=== PATIENT | female | born 1980 | race African-American/Black ===

== ENCOUNTER 2016-07-07 09:47 | Emergency (ER) | payer OTHER ==
[~2016-07-07] VITALS: Ht 167.6 cm; Wt 157.6 kg
[~2016-07-07 09:47] MED LIST: ALBU8.5H2 INHALATION; BECL8.7A6 IH; BENZ-12 PO; GLIM4TAB2 PO; INSU100V7 SUBQ; IPRA3AMP IH; LISI10TA PO; METF1000 PO; OMEP20CA11 PO; OXYC-407 PO; OXYC1TAB24 PO; PRE20 PO
--- NOTE | 2016-07-07 09:49 | ED.REPORT ---
[id number] Illness Date of Service Jul 07, 2016 ED Provider: Dr. Stanislaw Roque Patient is a 35 year old female with a hx of pneumonia, asthma, COPD, HTN, and DM who reports to the ED via EMS complaining of SOB onset this morning. She began experiencing flu-like symptoms yesterday including cough, nausea, vomiting and diarrhea. Pt denies fever. She presents to the ED in moderate- severe respiratory distress with an O2 saturation of 95%. She was tachycardic and hypertensive in the field. She has used a home nebulizer and inhaler with no relief. Pt also reports diaphoresis and chest pain which she thinks is due to coughing. She has no history of MARVIN. She had a nebulizer via EMS which was not helpful. Nursing Notes Stated Complaint: FLU LIKE SYMPTOMS Nursing Notes Reviewed: Yes Allergies: Coded Allergies: methylprednisolone (Verified Allergy, Severe, Nausea,Vomiting, 07/17/16) hydrocodone bitartrate (Verified Allergy, Unknown, 07/17/16) TAKES PERCOCET AT HOME ibuprofen (Verified Allergy, Unknown, 07/17/16) ketorolac tromethamine (Verified Allergy, Unknown, 07/17/16) propoxyphene napsylate (Verified Allergy, Unknown, 07/17/16) Scheduled Beclomethasone Dipropionate (Qvar) 8.7 Gm Aer.w.adap 2 PUFFS IH BID Glimepiride (Glimepiride) 4 Mg Tablet 4 MG PO BID Lisinopril (Lisinopril) 10 Mg Tablet 10 MG PO QAM Metformin (Glucophage) 1,000 Mg Tablet 1,000 MG PO BID Omeprazole (Omeprazole) 20 Mg Capsule.dr 20 MG PO DAILY Prednisone (Deltasone) 20 Mg Tablet 40 MG PO DAILY Take 2 tablets (40mg) by mouth once daily for 2 days Scheduled PRN Albuterol HFA (Proair HFA) 8.5 Gm Hfa.aer.ad 2-4 PUFFS INHALATION Q6H PRN PRN For Shortness of Breath Benzonatate (Tessalon Perle) 100 Mg Capsule 200 MG PO TID PRN PRN For Cough Guaifenesin/Codeine Phosphate (Cheratussin AC Syrup) 118 Ml Liquid 10 ML PO Q4H PRN PRN For Cough Insulin Glargine (Lantus U100 Insulin Vial) 100 Unit/Ml Vial 45 UNIT SUBQ QPM- INSULIN PRN PRN HYPERGLYCEMIA FOR BLOOD GLUCOSE >130 Ipratropium/Albuterol Sulfate (Iprat-Albut 0.5-3(2.5) mg/3 mL Inhalant Soln) 3 Ml Ampul.neb 3 ML IH Q6 PRN PRN For Shortness of Breath Ondansetron ODT (Zofran ODT) 4 Mg Tablet 4 MG PO Q4H PRN PRN For Nausea Oxycodone HCl/Acetaminophen 5-325 (Endocet 5-325) 1 Each Tablet 1 TABLET PO TID PRN PRN For Pain oxyCODONE-Acetaminophen 5-325 mg (oxyCODONE-Acetaminophen 5-325 mg) 1 Each Tablet 1-2 TAB PO Q6H PRN PRN For Pain General Time Seen by Provider: 09:55 Chief Complaint Other (shortness of breath) Hx Obtained From: Patient, EMS Arrived By: Ambulance Onset Occurred: Just prior to arrival Symptom Duration: Since onset Location: : Chest Quality: Pleuritic Severity: Current: Mild Severity: Maximum: Mild Similar Sx Previous: No Past Medical History Past Medical History Notes: 04/29/2015 for acute asthma exacerbation Patient has had 5 ED visits for abdominal pain in the past 6 Records indicate [address] scans over the years, all negative Past Medical History Diverticulitis Chronic back pain Chronic narcotic use Morbid obesity Recurrent bronchitis Pancreatitis Polycystic ovarian syndrome Arthritis Reports: Asthma, COPD, Diabetes mellitus, Hypertension Reports: Obesity Past Surgical History Reports: Cholecystectomy Family History Mother from a blood clot in her leg Smoking History Current Every Day Smoker Social History Alcohol Use: "Social" Drug Use: THC Other Social History: Local resident Ambulatory Status Independent Review of Systems Constitutional: Reports: Chills, Denies: Fever Respiratory: Reports: Non-productive cough, Pleuritic pain, Shortness of breath Cardiovascular: Reports: Chest pain GI: Reports: Diarrhea, Nausea, Vomiting, Denies: Abdominal pain Complete sys rev & neg: except as marked. Skin: Reports Diaphoresis Physical Exam Initial Vital Signs Initial VS: Reviewed, Vital signs abnormal Head / Eyes: Atraumatic, Normocephalic, PERRL ENT: Mucous membranes moist, Conjunctiva normal, No scleral icterus Abdomen / GI: Soft Extremities: Vascular intact, Neuro intact, No swelling General/Constitutional: Awake, Alert Distress / Hydration: Positive: Distress moderate Behavior: Positive: Anxious, Tearful Appearance / Presentation: Positive: Obese, morbidly Neck: Atraumatic, Supple, No meningismus, Full range of motion, No swelling, Non-tender Respiratory / Chest: Atraumatic, No retractions, No chest wall deformity Resp Distress / Stridor: Positive: Resp distress moderate Breath sounds diminished bilaterally Wheezing throughout all rizzo Cardiovascular: Regular rhythm, Heart sounds NL, No gallop, No murmurs, No rubs Heart Rate / Rhythm: Positive: Tachycardia Skin: Atraumatic, Color NL, No rash, Warm, Intact Color / Condition: Positive: Diaphoresis present Neurologic: Oriented X3, Speech NL, No motor deficits, No sensory deficits Interpretation & Diagnostics Interpretation & Diagnostics: Influenza A & B negative Lab Results Interpretation Test 07/07/16 10:22 07/07/16 11:23 07/07/16 15:06 White Blood Count 8.9th/mm3 (3.8-10.1) Red Blood Count 5.23mil/mm3 (3.90-5.20) Hemoglobin 14.0g/dL (12.0-15.6) Hematocrit 41.7% (35.0-46.0) Mean Corpuscular Volume 79.7fL (81-100) Mean Corpuscular Hemoglobin 26.8pg (27.0-35.0) Mean Corpuscular Hemoglobin Concent 33.6% (32.0-37.0) Red Cell Distribution Width 13.2% (12.3-15.4) Platelet Count sandy/L (150-400) Neutrophils (%) (Auto) 64.2% (40-74) Lymphocytes (%) (Auto) 26.3% (14-46) Monocytes (%) (Auto) 6.9% (4-12) Eosinophils (%) (Auto) 1.5% (0-5) Basophils (%) (Auto) 0.4% (0-3) Sodium Level 135mEq/L (134-144) Potassium Level 4.5mEq/L (3.5-5.2) Chloride Level 99mEq/L (97-108) Carbon Dioxide Level 20mmol/L (18-29) Blood Urea Nitrogen 10mg/dL (6-20) Creatinine 0.79mg/dL (0.57-1.00) Estimat Glomerular Filtration Rate 106mL/min (>59) Glucose Level 267mg/dL (60-99) Calcium Level 8.9mg/dL (8.5-10.1) Total Bilirubin 0.6mg/dL (0.0-1.2) Aspartate Amino Transf (AST/SGOT) 13U/L (0-50) Alanine Aminotransferase (ALT/SGPT) 10U/L (0-32) Alkaline Phosphatase 77U/L (25-150) Troponin T < 0.010ug/L (0.0-0.011) Pro-B-Type Natriuretic Peptide 65.34pg/mL (0-130) Total Protein 7.2g/dL (6.4-8.4) Albumin 3.9g/dL (3.4-5.0) Procalcitonin < 0.05ng/mL (See Comment) D-Dimer < 0.5mg/L (<0.50) Urine Color Yellow (YELLOW) Urine Appearance Hazy (CLEAR,HAZY) Urine pH 6.0 (5.0-8.0) Urine Specific [place] 1.020 (1.003-1.035) Urine Protein Negativemg/dL (NEG,TRACE) Urine Glucose (UA) Negativemg/dL (NEGATIVE) Urine Ketones Negativemg/dL (NEGATIVE) Urine Occult Blood Negative (NEGATIVE) Urine Nitrite Negative (NEGATIVE) Urine Bilirubin Negative (NEGATIVE) Urine Urobilinogen Normalmg/dL (NORMAL) Urine Leukocyte Esterase Negative (NEGATIVE) Urine RBC 0-2/hpf (0-2) Urine WBC 0-5/hpf (0-5) Urine Epithelial Cells Few/hpf (NONE-MOD) Urine Crystals None seen (NONE SEEN) Urine Bacteria Few/hpf (NONE-FEW) Urine Hyaline Casts None/lpf (NONE) Urine Granular Casts None seen (NONE SEEN) Urine Waxy Casts None seen (NONE SEEN) Urine Red Blood Cell Casts None seen (NONE SEEN) Urine White Blood Cell Casts None seen (NONE SEEN) Urine Mucus None seen (None Seen) Urine Trichomonas None seen (NONE SEEN) Urine Yeast None (NONE SEEN) Urinalysis Comment None Urine Culture Reflexed Not indicated Lab Results Interpretation: ph 7.39/38/160/22.5 fio2 of 50% ECG Interpretation ECG Interpretation: no st changes Interpreted by: ED physician Rhythm / Conduction: Tachycardia (127) X-Ray Chest Interpretation Chest Xray Interpretation: IMPRESSION: 1. No acute cardiopulmonary disease. Dictated by: Robert Guadarrama M.D. on 07/07/2016 at 10:22 Approved by: Robert Guadarrama M.D. on 07/07/2016 at 10:22 View: Portable Interpretation / Wet Read by: Interpret - Radiologist Re-Evaluation & [facility] Med Decision/Clinical Course 35-year-old female with a history of COPD who is a regular smoker presents with shortness of breath since this morning and body aches/chills. Her ABG was essentially normal. She was in respiratory distress initially but this improved with several breathing treatments. She was also given Levaquin and prednisone. Patient continued to have chest pain but this was relieved with Dilaudid. Her d-dimer was negative and certainly all of her symptoms are consistent with COPD. She has plenty of albuterol at home to continue treatments and I have advised her to do so every 2 hours as needed. She is not hypoxic. Return if symptoms worsen. Re-Evaluation/Progress #1: Time of Eval: 10:46 Patient Status: Condition improved Re-Evaluation/Progress Note: Pt rechecked. Symptoms slightly improved, better air movement. Respiratory distress improved. Re-Evaluation/Progress #2: Time of Eval: 12:59 Re-Evaluation/Progress Note: Pt rechecked. Pt is moving much more air and diminished wheezing in lungs. Informed pt of plan for treatment. Pt understands and agrees with plan for treatment. F/U instructions and RTER warnings given. All questions addressed. Counseled Regarding: Diagnosis, Lab results, Need for follow-up, When/why to return to ED Patient Discharge & Departure Impression: Primary Impression: COPD exacerbation Additional Impressions: Respiratory distress Chest pain Chest pain type: unspecified Qualified Code: R07.9 - Chest pain, unspecified Nausea Cough Disposition: Home Discharge Condition All VS Reviewed: Yes Condition: Stable Patient Instructions: Chronic Obstructive Pulmonary Disease (ED) Additional Instructions: I recommend you quit smoking. This is the main cause of your symptoms today. There are no signs of pneumonia or influenza on our testing today. Please use prednisone daily and Levaquin daily until your pills are gone. Use Zofran as needed for nausea. Use cough syrup to help you sleep better at night. Return to the ER for any new or worsening symptoms. Follow up with your primary care provider next week. Referrals: Kiran Haney MD (PCP) Scribadrián Attestation Portion of this note were transcribed by Angel Deng and Dany Bryant. I, Dr. Roque, personally performed the history, physical exam, and medical decision-making: I reviewed and confirmed the accuracy for the information in the transcribed note. Signed by: margarita Lynn, 07/07/16 1005 copies to: Kiran Haney MD, Gary R DO Jul 07, 2016 09:49 DANY BRYANT Jul 07, 2016 10:06 ANGEL DENG Jul 07, 2016 10:14
[2016-07-07] MEDS ORDERED: Albuterol 2.5 mg/3 mL Inhalation Solution NEB ONE (09:50)
[2016-07-07] MEDS ORDERED: Albuterol-Ipratropium 3 mL Inhalation Solution NEB ONE ×2 (09:50→13:05)
[2016-07-07 10:02] VITALS: BP 150/96; PULSE 126; RESP 27; O2SAT 100
[2016-07-07] MEDS ORDERED: Magnesium Sulf 2 Gm/50mL Water 2 GM in IV Premix 1 EACH IV ONE (10:10)
[2016-07-07] MEDS ORDERED: Dexamethasone 10 mg/mL Inj IVPUSH ONE (10:10)
[2016-07-07] MEDS ORDERED: levoFLOXacin Inj 750 MG in IV Premix 1 EACH IV ONE (10:10)
--- NOTE | 2016-07-07 10:11 | ABG ---
DateTimeAnalyzed 10:06:00 -_ pH ____7.391 - 7.350 7.450 pCO2 ___38.0__ -mmHg 35.0 45.0 pO2 160 -mmHg 69.0 116 HCO3- ___22.5__ -mmol/L 22.0 26.0 ABE ___-1.6__ -mmol/L -2.0 2.0 tHb ___12.8__ -g/dL O2Hb ___96.8__ -% COHb ____1.6__ -% MetHb ____0.9__ -% sO2 ___99.3__ -% FIO2 ___21.0__ -% Drawn By MT - Date/Time Notified____ 10:11:00 -_ Oxygen Device 1 SIMP MASK - Notified By MT - Notified Whom ___DR. Adelin - B 769 -mmHg tO2 ___17.8__ -Vol% Garret test _Positive -
[2016-07-07 10:17] VITALS: PULSE 120; RESP 26; O2SAT 99
--- NOTE | 2016-07-07 10:24 | DRSVH ---
PROCEDURE: X-RAY CHEST ONE VIEW, PORTABLE ([id number]) INDICATIONS: sob TECHNIQUE: One view of the chest was acquired. COMPARISON: [facility], CR, XR CHEST 2VW, 02/02/2016, 13:14. [facility], CR, XR CHEST 1VW (PORTABLE), 12/07/2015, 16:25. FINDINGS: Surgical changes and devices: None. Lungs and pleura: No pleural effusions or pneumothorax. Lungs are clear. Mediastinum: Mediastinal contours appear normal. Heart size is normal. Bones and chest wall: No suspicious bony lesions. Overlying soft tissues appear unremarkable. IMPRESSION: 1. No acute cardiopulmonary disease. Dictated by: Robert Guadarrama M.D. on 07/07/2016 at 10:22 Approved by: Robert Guadarrama M.D. on 07/07/2016 at 10:22
[2016-07-07 10:30] LABS: BASOPHILS % (AUTO) 0.4 % (0-3); EOSINOPHILS % (AUTO) 1.5 % (0-5); MONOCYTES % (AUTO) 6.9 % (4-12); Mean Corpuscular Hemoglobin 26.8 pg (27.0-35.0); Mean Corpuscular Volume 79.7 fL (81-100); NEUTROPHILS % (AUTO) 64.2 % (40-74)
[2016-07-07] MEDS ORDERED: HYDROmorphone 1 mg/mL Inj IVPUSH ONE ×4 (10:50→15:05)
[2016-07-07 11:55] LABS: TROPONIN T < 0.010 ug/L (0.0-0.011)
[2016-07-07] MEDS ORDERED: 0.9% Sodium Chloride 1,000 ML IV ONE (13:02)
[2016-07-07] MEDS ORDERED: predniSONE 20 mg Tablet PO ONE (13:05)
[2016-07-07 13:19] VITALS: PULSE 112; RESP 20; O2SAT 95
[2016-07-07 14:52] VITALS: BP 133/85; PULSE 120; RESP 24; O2SAT 94
[2016-07-07] MEDS ORDERED: ONDA4TAB9 PO (15:05)
[2016-07-07] MEDS ORDERED: LEVO750T9 PO (15:05)
[2016-07-07] MEDS ORDERED: PRED50TA PO (15:05)
[2016-07-07] MEDS ORDERED: GUAI118L13 PO (15:05)
[2016-07-07 15:25] VITALS: BP 133/85; PULSE 101; RESP 18; O2SAT 96
[2016-07-08 15:30] LABS: APPEARANCE,URINE HAZY (CLEAR,HAZY); COLOR,URINE YELLOW (YELLOW); OCCULT BLOOD,URINE NEGATIVE (NEGATIVE); UROBILINOGEN,URINE NORMAL (NORMAL)
== END 2016-07-07 15:27 | disposition home or self-care (01) ==
LOC: EDBD 09:47 → SED 09:47
DX: J44.1 Chronic obstructive pulmonary disease with (acute) exacerbation (principal); R11.0 Nausea; M79.1 Myalgia; R68.83 Chills (without fever); I10 Essential (primary) hypertension; E11.9 Type 2 diabetes mellitus without complications; E66.01 Morbid (severe) obesity due to excess calories; J45.909 Unspecified asthma, uncomplicated; F17.200 Nicotine dependence, unspecified, uncomplicated; Z87.01 Personal history of pneumonia (recurrent); Z68.43 Body mass index [BMI] 50.0-59.9, adult; Z79.4 Long term (current) use of insulin; Z79.84 Long term (current) use of oral hypoglycemic drugs; Z88.8 Allergy status to other drugs, medicaments and biological substances; Z88.5 Allergy status to narcotic agent; Z88.6 Allergy status to analgesic agent
CPT/HCPCS: 36415; 71010; 80053; 81000; 82308; 83880; 84484; 85025; 85379; 87804; 93005; 94640; 94664; 96361; 96365; 96366; 96375; 96376; 99285; J1100; J1170; J1956; J2060; J7030; J7613; J7620

== ENCOUNTER 2016-07-08 08:56 | Observation (INO) | payer OTHER, MEDICAID ==
[2016-07-08] VITALS (9 sets, daily range): BP systolic 102–140; BP diastolic 42–84; PULSE 78–125; RESP 18–30; O2SAT 92–99
[~2016-07-08] VITALS: Ht 167.6 cm; Wt 153.8 kg
[~2016-07-08 08:56] MED LIST changes: +GUAI118L13 PO; +LEVO750T9 PO; +ONDA4TAB9 PO; +PRED50TA PO
--- NOTE | 2016-07-08 09:03 | ED.REPORT ---
HPI-General Illness Date of Service Jul 08, 2016 ED Provider: Stanislaw Roque DO This patient is a 35 year old female with a history of DM, hypertension, and COPD presenting to the ED complaining of SOB and cough. She was seen in the ED yesterday for an exacerbation of COPD and states that she has been up all night since then due to discomfort from coughing. Pt states that she does breathing treatment at home 4x daily and has not experienced relief from it. She feels burning pain in her throat and chest that radiates to her LUQ abdomen as well as tightness in her abdomen. She denies indigestion. Nursing Notes Stated Complaint: COLD SYMPTOMS Nursing Notes Reviewed: Yes Allergies: Coded Allergies: methylprednisolone (Verified Allergy, Severe, Nausea,Vomiting, 07/17/16) hydrocodone bitartrate (Verified Allergy, Unknown, 07/17/16) TAKES PERCOCET AT HOME ibuprofen (Verified Allergy, Unknown, 07/17/16) ketorolac tromethamine (Verified Allergy, Unknown, 07/17/16) propoxyphene napsylate (Verified Allergy, Unknown, 07/17/16) Scheduled Beclomethasone Dipropionate (Qvar) 8.7 Gm Aer.w.adap 2 PUFFS IH BID Glimepiride (Glimepiride) 4 Mg Tablet 4 MG PO BID Lisinopril (Lisinopril) 10 Mg Tablet 10 MG PO QAM Metformin (Glucophage) 1,000 Mg Tablet 1,000 MG PO BID Omeprazole (Omeprazole) 20 Mg Capsule.dr 20 MG PO DAILY Prednisone (Deltasone) 20 Mg Tablet 40 MG PO DAILY Take 2 tablets (40mg) by mouth once daily for 2 days Scheduled PRN Albuterol HFA (Proair HFA) 8.5 Gm Hfa.aer.ad 2-4 PUFFS INHALATION Q6H PRN PRN For Shortness of Breath Benzonatate (Tessalon Perle) 100 Mg Capsule 200 MG PO TID PRN PRN For Cough Guaifenesin/Codeine Phosphate (Cheratussin AC Syrup) 118 Ml Liquid 10 ML PO Q4H PRN PRN For Cough Insulin Glargine (Lantus U100 Insulin Vial) 100 Unit/Ml Vial 45 UNIT SUBQ QPM- INSULIN PRN PRN HYPERGLYCEMIA FOR BLOOD GLUCOSE >130 Ipratropium/Albuterol Sulfate (Iprat-Albut 0.5-3(2.5) mg/3 mL Inhalant Soln) 3 Ml Ampul.neb 3 ML IH Q6 PRN PRN For Shortness of Breath Ondansetron ODT (Zofran ODT) 4 Mg Tablet 4 MG PO Q4H PRN PRN For Nausea Oxycodone HCl/Acetaminophen 5-325 (Endocet 5-325) 1 Each Tablet 1 TABLET PO TID PRN PRN For Pain oxyCODONE-Acetaminophen 5-325 mg (oxyCODONE-Acetaminophen 5-325 mg) 1 Each Tablet 1-2 TAB PO Q6H PRN PRN For Pain General Time Seen by MD: 09:01 Chief Complaint Breathing problem (SOB) Hx Obtained From: Patient Arrived By: Walk-in Sudden in Onset?: No Onset Occurred: Yesterday Symptom Duration: Since onset Location: : Abdomen: Chest Quality: Burning, Pleuritic Radiation: : Abdomen (Tightness) Severity: Current: Moderate Severity: Maximum: Moderate Associated with: Reports: Abdominal pain, Cough, Difficulty breathing, Pain, Shortness of breath Pertinent Negative: Pt denies other symptoms Recent Healthcare: No recent hospitalization, Recent doctor visit Similar Sx Previous: Yes Past Medical History Past Medical History Notes: 04/29/2015 for acute asthma exacerbation Patient has had 5 ED visits for abdominal pain in the past 6 Records indicate [address] scans over the years, all negative Past Medical History Diverticulitis Chronic back pain Chronic narcotic use Morbid obesity Recurrent bronchitis Pancreatitis Polycystic ovarian syndrome Arthritis Reports: Asthma, COPD, Diabetes mellitus, Hypertension Reports: Obesity Past Surgical History Reports: Cholecystectomy Family History Mother from a blood clot in her leg Smoking History Current Every Day Smoker Social History Alcohol Use: "Social" Drug Use: THC Other Social History: Local resident Ambulatory Status Independent Review of Systems Denies indigestion Full Review of Systems Ears / Nose / Throat: Reports: Throat pain (Burning) Respiratory: Reports: Non-productive cough, Pleuritic pain, Shortness of breath Cardiovascular: Reports: Chest pain (Burning) GI: Reports: Abdominal pain (tightness ) Complete sys rev & neg: except as marked. Physical Exam Vital Signs Initial VS: Reviewed Head / Eyes: Atraumatic, Normocephalic, PERRL ENT: Mucous membranes moist, Conjunctiva normal, No scleral icterus Neck: Supple, Full range of motion Extremities: Vascular intact, Neuro intact, No swelling Skin: Warm, Dry, No cyanosis Neurologic: Alert, Oriented, Nonfocal Psychiatric: Mood/affect normal, Behavior normal, Normal thought content General/Constitutional: Awake, Alert, Cooperative, Not toxic appearing Appearance / Presentation: Positive: Obese, morbidly Respiratory / Chest: Atraumatic, Breath sounds = bilat, No retractions Wheezing / Retractions: Positive: Wheezing mild Tachypneic Good air movement to lungs Lungs sound better than yesterday, per exam Cardiovascular: Regular rhythm, Heart sounds NL, No gallop, No murmurs Heart Rate / Rhythm: Positive: Tachycardia No lower extremity edema Abdomen: Atraumatic, Soft, No guarding, No rebound Tenderness/Guarding/Rebound: Positive: Tender LUQ... (mild) Interpretation & Diagnostics Interpretation & Diagnostics: PROCEDURE: CT ANGIO CHEST PULMONARY EMBOLISM ([id number]) IMPRESSION: 1. No evidence of central pulmonary embolism, with suboptimal opacification of the pulmonary arteries limiting evaluation beyond the segmental pulmonary arteries. 2. Mildly enlarged mediastinal and right hilar lymph nodes are nonspecific and may be reactive. Findings are slightly increased from the prior study. 3. Scattered indistinct clustered ground glass opacities with a basilar predominance are decreased in prominence from the prior study. The findings suggest sequelae of a mild chronic atypical infection. Dictated by: Robert Guadarrama M.D. on 07/08/2016 at 11:33 Lab Results Interpretation Test 07/08/16 10:01 07/08/16 11:00 Troponin T < 0.010ug/L (0.0-0.011) Pro-B-Type Natriuretic Peptide 496.0pg/mL (0-130) Procalcitonin < 0.05ng/mL (See Comment) ECG Interpretation ECG Interpretation: Sinus tachy with rate of [address] changes unchanged compared to yesterday Time: 09:30 Interpreted by: ED physician Re-Eval/Medical Decision Med Decision/Clinical Course 36-year-old female with history of asthma/COPD who is seen by me yesterday in the ER for respiratory distress presents again because she is unable to feel better at home on nebulizers. She presented today tachypneic, tachycardic, and diaphoretic. I ruled out PE with CTA of the chest. Her left upper quadrant pain improved with a GI cocktail leading me to suspect a component of gastritis. She continues to ask for pain medication for her chest pain. She does not look much improved after nebulizers today. She is already on antibiotics and steroids. I think she would benefit from admission for further treatment of her condition. Discussed with patient who agrees. Source of Hx: Old records Time of Eval: 10:42 Patient Status: Condition improved Re-Evaluation/Progress Note: Pt. rechecked. Pt. seems a little more relaxed. LUQ pain has mildy improved with GI cocktail. Patient remains tachypenic and tachycardic. Told pt. that she might be admitted. Pt. understands and agrees with plan. All questions have been addressed at this time. Consultation : Referral / Consult Name: Davon Boo MD Consulted With: Hospitalist Requested Call at: 13:22 Family Manager: Will see patient, Agrees with eval, Agrees with plan, Accepts admit Note: Consulted regarding case. Accepts admit. Counseled Regarding: Diagnosis, Lab results, Need for admission Discharge & Departure Primary Impression: COPD exacerbation Additional Impressions: Respiratory distress Cough Failure of outpatient treatment Shortness of breath Disposition: ADMITTED TO HOSPITAL Discharge Condition All VS Reviewed: Yes Condition: Stable Referrals: Kiran Haney MD (PCP) Scribe Attestation Portions of this note were transcribed by Funmi Deng. I, Dr. Roque personally performed the history, physical exam and medical decision- making; I reviewed and confirmed the accuracy of the information in the transcribed note. Signed by: Kiley 07/08/2016 and 1333. copies to: Kiran Haney MD, Gary R DO Jul 08, 2016 09:03 Narda Richardson [Funmi] Jul 08, 2016 09:21 ANGEL DENG Jul 08, 2016 09:27 (3.5-5.2) Chloride Level 96mEq/L (97-108) Carbon Dioxide Level 22mmol/L (18-29) Blood Urea Nitrogen 14mg/dL (6-20) Creatinine 0.84mg/dL (0.57-1.00) Estimat Glomerular Filtration Rate 99mL/min (>59) Glucose Level 236mg/dL (60-99) Calcium Level 9.1mg/dL (8.5-10.1) Total Bilirubin 0.3mg/dL (0.0-1.2) Aspartate Amino Transf (AST/SGOT) 33U/L (0-50) Alanine Aminotransferase (ALT/SGPT) 21U/L (0-32) Alkaline Phosphatase 75U/L (25-150) Troponin T < 0.010ug/L (0.0-0.011) Pro-B-Type Natriuretic Peptide 496.0pg/mL (0-130) Total Protein 8.1g/dL (6.4-8.4) Albumin 4.0g/dL (3.4-5.0) Procalcitonin < 0.05ng/mL (See Comment) ECG Interpretation ECG Interpretation: Sinus tachy with rate of [address] changes unchanged compared to yesterday Time: 09:30 Interpreted by: ED physician Re-Eval/Medical Decision Source of Hx: Old records Time of Eval: 10:42 Patient Status: Condition improved Re-Evaluation/Progress Note: Pt. rechecked. Pt. seems a little more relaxed. LUQ pain has mildy improved with GI cocktail. Patient remains tachypenic and tachycardic. Told pt. that she might be admitted. Pt. understands and agrees with plan. All questions have been addressed at this time. Consultation : Referral / Consult Name: Davon Boo MD Consulted With: Hospitalist Requested Call at: 13:22 Family Manager: Will see patient, Agrees with eval, Agrees with plan, Accepts admit Note: Consulted regarding case. Accepts admit. Counseled Regarding: Diagnosis, Lab results, Need for admission Discharge & Departure Primary Impression: COPD exacerbation Additional Impressions: Respiratory distress Cough Failure of outpatient treatment Shortness of breath Disposition: ADMITTED TO HOSPITAL Discharge Condition All VS Reviewed: Yes Condition: Stable Referrals: Kiran Haney MD (PCP) Scribe Attestation Portions of this note were transcribed by Funmi Richardson and Angel Deng. I, Dr. Roque personally performed the history, physical exam and medical decision- making; I reviewed and confirmed the accuracy of the information in the transcribed note. Signed by: Funmi Deng, Kiley, 07/08/2016 and 1333. copies to: Kiran Haney MD, Gary R DO Jul 08, 2016 09:03 Narda Richardson [Funmi] Jul 08, 2016 09:21 ANGEL DENG Jul 08, 2016 09:27
[2016-07-08] MEDS ORDERED: 0.9% Sodium Chloride 1,000 ML IV ONE (09:04)
[2016-07-08] MEDS ORDERED: Albuterol 2.5 mg/3 mL Inhalation Solution NEB ONE (09:05)
[2016-07-08] MEDS ORDERED: Albuterol-Ipratropium 3 mL Inhalation Solution NEB ONE (09:05)
[2016-07-08] MEDS ORDERED: Magnesium Sulf 2 Gm/50mL Water 2 GM in IV Premix 1 EACH IV ONE (09:15)
[2016-07-08] MEDS ORDERED: HYDROmorphone 1 mg/mL Inj IVPUSH ONE ×2 (09:20→11:00)
[2016-07-08] MEDS ORDERED: LORazepam 1 mg Tablet PO ONE (09:20)
[2016-07-08] MEDS ORDERED: Alum-Mag Hydrox-Simeth 30 mL Suspension PO ONE (09:20)
[2016-07-08 10:25] LABS: BASOPHILS % (AUTO) 0 % (0-3); EOSINOPHILS % (AUTO) 0 % (0-5); MONOCYTES % (AUTO) 17.5 % (4-12); Mean Corpuscular Hemoglobin 26.3 pg (27.0-35.0); Mean Corpuscular Volume 81.1 fL (81-100); NEUTROPHILS % (AUTO) 55.2 % (40-74); Platelet Count 203 bil/L (150-400)
[2016-07-08 10:42] LABS: TROPONIN T < 0.010 ug/L (0.0-0.011)
--- NOTE | 2016-07-08 11:38 | DRSVH ---
PROCEDURE: CT ANGIO CHEST PULMONARY EMBOLISM ([id number]) INDICATIONS: chest pain, tachycardia, sob TECHNIQUE: After the administration of intravenous contrast, 2 mm thick sections acquired from the pulmonary api margy to the posterior costophrenic angles. 3-dimensional maximum intensity projection (MIP) coronal a nd sagittal reformats were then acquired through the thorax. For radiation dose reduction, the follo wing was used: automated exposure control, adjustment of mA and/or kV according to patient size. COMPARISON: [facility], CT, CHEST ANGIO-PE, 06/12/2013, 7:15. FINDINGS: Image quality: There is suboptimal opacification of the pulmonary arteries. Pulmonary arteries: Pulmonary arteries are normal in size, and demonstrate no intraluminal filling d efects to suggest central pulmonary embolism. There is suboptimal opacification of the pulmonary art eries limiting evaluation of subsegmental branches. Lungs and pleura: There are a few indistinct clustered ground glass opacities scattered bilaterally with a basilar predominance. No pleural effusions or pneumothorax. Central and peripheral airways ar e patent. Mediastinum: Heart size is normal, without pericardial effusion. There are mildly enlarged right hi lar lymph nodes measuring up to 1 cm in short axis. A few mildly enlarged mediastinal lymph nodes ar e also demonstrated including a precarinal node measuring approximately 1 cm in short axis and a subc arinal node measuring 1.1 cm in short axis. Thoracic aorta is normal in caliber and enhancement. Es ophagus is normal in caliber, without hiatal hernia. Bones and chest wall: No suspicious bony lesions. Ribs and thoracic spine appear intact throughout. Thyroid gland is partially visualized. No axillary or supraclavicular adenopathy by size criteria, with a few scattered mildly prominent axillary lymph nodes which are likely reactive. Abdomen: Visualized upper abdominal solid organs appear normal in the early arterial phase of enhanc ement. IMPRESSION: 1. No evidence of central pulmonary embolism, with suboptimal opacification of the pulmonary arterie s limiting evaluation beyond the segmental pulmonary arteries. 2. Mildly enlarged mediastinal and right hilar lymph nodes are nonspecific and may be reactive. Fin dings are slightly increased from the prior study. 3. Scattered indistinct clustered ground glass opacities with a basilar predominance are decreased i n prominence from the prior study. The findings suggest sequelae of a mild chronic atypical infectio n. Dictated by: Robert Guadarrama M.D. on 07/08/2016 at 11:33 Approved by: Robert Guadarrama M.D. on 07/08/2016 at 11:33
[2016-07-08] MEDS ORDERED: Lidocaine PF 2% 5 mL Inhalation Solution INHALATION ONE (12:20)
[2016-07-08] MEDS ORDERED: Ondansetron 2 mg/mL 2 mL Inj IVPUSH PRN ×2 (13:35→14:10)
[2016-07-08] MEDS ORDERED: Alum-Mag Hydrox-Simeth 30 mL Suspension PO PRN ×2 (13:35→14:10)
[2016-07-08] MEDS ORDERED: Polyethylene Glycol (PEG) 17 Gm Powder PO PRN (14:10)
--- NOTE | 2016-07-08 14:11 | NUR ---
Admission [place] [facility] chest pain 03/04, on-going for several days dus to cough. VSS, able to transfer self from stretcher to bed, and then to chair. 2L O2 via NC, IV SL. A/Ox3. [place] to call light, visiting hours, Call light with in reach, will continue to monitor.
[2016-07-08] MEDS ORDERED: Glucose 40% Oral Gel 15 Gm Tube PO PRN (14:15)
[2016-07-08] MEDS ORDERED: oxyCODONE-Acetamin 5-325 mg Tablet PO ONE (15:20)
--- NOTE | 2016-07-08 15:30 | NUR ---
Pain Pt reports upper abd/lower chest pain 10/10 on pain scale due to coughing, MD notified. New order received for 1 time order of Percocet. Pain meds given as ordered. Call light with in reach, will continue to monitor.
[2016-07-08] MEDS: predniSONE 20 mg Tablet PO SCH (15:38)
--- NOTE | 2016-07-08 15:43 | PCM.HPMED ---
Subjective Date of Service Jul 08, 2016 Primary Provider: Admitting Physician: Davon Boo MD Primary Care Physician: Kiran Haney MD Attending Physician: Davon Boo MD Admit Status: From the Emergency Department Chief Complaint: cough, dyspnea, and pain History of Present Illness: Almaz is a 35yo female with ongoing tobacco use, asthma, and chronic prescription opiate use for low back pain who presented to the emergency department with 3-4 days of worsening cough with yellow-green sputum and dyspnea for which she reports using her albuterol inhaler every 4hours for the past 3 days. She was seen in the ER on 07/07/16 complaining of cough, nausea, vomiting, and diarrhea in addition to diaphoresis. She was given prescriptions for levofloxacin, ondansetron, and codeine cough syrup. No improvement with the codeine cough syrup. Her boyfriend has had a cough and runny nose, though he is not nearly as ill per patient report and he is improving. She denies any nasal congestion or rhinorrhea. She denies any fever, but admits to chills and some night sweats. She reports nausea and chest wall tenderness "from all that coughing." Today, she denies having had any diarrhea recently. She reports compliance with twice daily Qvar use. She requests Dilaudid stating that she did not have anything for pain. When asked about her home opiate medication, she states that she "misplaced" her pill bottle of oxycodone-acetaminophen 5/325mg tablets #114 that she picked up from her pharmacy on 06/29/16 and has not had any today. She has received Dilaudid 1mg IV x 2 while in the emergency department. She was also given Lorazepam 1mg PO in the ER at 09:59 today. Review of Systems: A comprehensive review of systems was conducted with the patient and found to be negative except as above in the History of Present Illness. Allergies Coded Allergies: methylprednisolone (Verified Allergy, Severe, Nausea,Vomiting, 02/14/16) hydrocodone bitartrate (Verified Allergy, Unknown, 02/14/16) TAKES PERCOCET AT HOME ibuprofen (Verified Allergy, Unknown, 02/14/16) ketorolac tromethamine (Verified Allergy, Unknown, 02/14/16) propoxyphene napsylate (Verified Allergy, Unknown, 02/14/16) Home Medications Lisinopril 10mg daily Metformin 1000mg BID Glimepiride 4mg daily Insulin, she is unable to recall the type or the number of units she takes. Qvar inhaler BID Albuterol inhaler q4-6h PRN wheezing or dyspnea Oxycodone-acetaminophen 5/325mg tablet 1-2 q6h PRN pain, has reportedly not taken any for the past day or so since she does not know where her bottle of the medication is located. PMH Per chart review and discussion with the patient: Asthma with a h/o yearly acute exacerbations Tobacco use Polycystic Ovarian Syndrome Hypertension Diabetes Hx of pancreatitis Surgical History None Family History Both parents have type 2 diabetes mellitus. No respiratory disease in the family. Social History Hx Alcohol Use: No Hx Substance Use: Yes (occasionally smokes marijuana) Hx Tobacco Use: Yes Smoking Status: Current Every Day Smoker (reports smoking 3-5 cigarettes per day) Additional Information Local resident who lives alone with her cat. No travel outside of [place] in the past 5 years. Exam Vital Signs Vital Sign - Last Date Time Temp Pulse Resp B/P Pulse Ox O2 Delivery O2 Flow Rate FiO2 07/08/16 14:14 36.9 78 18 102/57 99 Room Air 07/08/16 13:00 2 Exam General: Morbidly obese female laying supine with the head of the bed elevated to 30 degrees, appears older than her stated age. Anxious and tearful, repeatedly asking for dilaudid without conversational dyspnea. Supplemental oxygen via nasal cannula at 2L/h. Observed through room to lira window resting in bed texting on her cell phone, comfortable appearing. HEENT: Normocephalic, atraumatic. External ears without defect. Pupils equal, round, and reactive to light and accommodation. Anicteric sclerae, moist conjunctivae. Oropharynx free of erythema and cobble stoning with moist mucosa. Neck: Supple with full range of motion. No jugular venous distension. No lymphadenopathy. Cardiovascular: Regular rate and rhythm without murmurs, rubs, or gallops appreciated. Chest wall tender to palpation along the sternum. Pulmonary: Decreased breath sounds at the bilateral lower 1/3 lung rizzo, otherwise normal without wheezes, rales, or rhonchi. No use of accessory muscles. No tripoding. Abdomen: Normoactive bowel tones. Soft, nontender, nondistended. No hepatosplenomegaly or masses appreciated. Extremities: No clubbing, cyanosis, or edema appreciated bilaterally. Skin: Normal temperature, turgor, and texture; no rash, ulcers, or subcutaneous nodules appreciated. Neurological: Cranial nerves grossly intact. Normal muscle strength, tone, and bulk. No known gait impairment. Alert and oriented to person, place, and time. Lab and Diagnostics Result Diagram: 07/08/16 1001 07/08/16 1001 X-Rays, CTs and MRIs CT angio of the chest: FINDINGS: Image quality: There is suboptimal opacification of the pulmonary arteries. Pulmonary arteries: Pulmonary arteries are normal in size, and demonstrate no intraluminal filling defects to suggest central pulmonary embolism. There is suboptimal opacification of the pulmonary arteries limiting evaluation of subsegmental branches. Lungs and pleura: There are a few indistinct clustered ground glass opacities scattered bilaterally with a basilar predominance. No pleural effusions or pneumothorax. Central and peripheral airways are patent. Mediastinum: Heart size is normal, without pericardial effusion. There are mildly enlarged right hilar lymph nodes measuring up to 1 cm in short axis. A few mildly enlarged mediastinal lymph nodes are also demonstrated including a precarinal node measuring approximately 1 cm in short axis and a subcarinal node measuring 1.1 cm in short axis. Thoracic aorta is normal in caliber and enhancement. Esophagus is normal in caliber, without hiatal hernia. Bones and chest wall: No suspicious bony lesions. Ribs and thoracic spine appear intact throughout. Thyroid gland is partially visualized. No axillary or supraclavicular adenopathy by size criteria, with a few scattered mildly prominent axillary lymph nodes which are likely reactive. Abdomen: Visualized upper abdominal solid organs appear normal in the early arterial phase of enhancement. IMPRESSION: 1. No evidence of central pulmonary embolism, with suboptimal opacification of the pulmonary arteries limiting evaluation beyond the segmental pulmonary arteries. 2. Mildly enlarged mediastinal and right hilar lymph nodes are nonspecific and may be reactive. Findings are slightly increased from the prior study. 3. Scattered indistinct clustered ground glass opacities with a basilar predominance are decreased in prominence from the prior study. The findings suggest sequelae of a mild chronic atypical infection. Dictated by: Robert Guadarrama M.D. on 07/08/2016 at 11:33 12-lead ECG Sinus tachycardia at a rate of approximately 110bpm Additional Diagnostics: Procalcitonin < 0.050 ABG from ER visit on 07/07/16: DateTimeAnalyzed 10:06:00 -_ pH ____7.391 - 7.350 7.450 pCO2 ___38.0__ -mmHg 35.0 45.0 pO2 160 -mmHg 69.0 116 HCO3- ___22.5__ -mmol/L 22.0 26.0 ABE ___-1.6__ -mmol/L -2.0 2.0 tHb ___12.8__ -g/dL O2Hb ___96.8__ -% COHb ____1.6__ -% MetHb ____0.9__ -% sO2 ___99.3__ -% FIO2 ___21.0__ -% Drawn By MT - Date/Time Notified____ 10:11:00 -_ Oxygen Device 1 SIMP MASK - Notified By MT - Notified Whom ___DR. Worthy - B 769 -mmHg tO2 ___17.8__ -Vol% Garret test _Positive - Assessment & Plan Almaz is a 35yo female with asthma who presented to the ER with 3-4 days of worsening cough and dyspnea. She has been admitted for the management of an acute asthma exacerbation. Interestingly, she reported feeling better laying back than when upright and flexing forward for posterior auscultation of the lungs which is not consistent with asthma. 1. Acute asthma exacerbation - May be brought on by viral URI or ongoing smoking - DuoNeb q4h while awake - Prednisone 60mg daily - Continue home dosing of Qvar BID - Supplemental oxygen PRN to maintain an oxygen saturation >92% - Monitor 2. Chronic prescription opiate use - Cautious use of opiate pain medication, will not exceed her outpatient dosing - Urine drug screen ordered given the patient's level of anxiety and potential aberrant behavior with outpatient opiate medication with her reported loss of # 114 tablets of percocet. 3. Hypertension, chronic and stable - Will continue home dosing of lisinopril - Monitor 4. Diabetes Mellitus, type 2 on home insulin therapy - Medium dose correctional insulin while in the hospital - Holding her metformin at this time - Constant carbohydrate diet 5. Tobacco use, ongoing - Nicotine patch ordered as requested by the patient 6. Morbid Obesity with a BMI of 54.7 - Bariatric bed required for patient safety Miralax and Senna PRN constipation Ondansetron PRN nausea Patient is admitted under observation status with expected length of stay less than 2 midnights due to severity of presenting symptoms and risk of adverse event. VTE Prophylaxis: Sub-Q Heparin (Unfractionated) Resuscitation Status: CPR: Attempt Resuscitation (Discussed at bedside with the patient) Attending Statement The patient was seen and examined together with Dr. Jean on 07/08/2016 and I agree with the history, exam and plan as outlined in the note above. Funmi Jean DO Jul 08, 2016 15:10 Davon Boo MD Jul 09, 2016 12:13
[2016-07-08] MEDS: Heparin 5,000 Unit/mL Inj SUBQ SCH (17:04)
[2016-07-08] MEDS: Insulin LISPRO 300 Unit/3 mL Inj SUBQ SCH ×2 (17:05→21:31)
[2016-07-08] MEDS: Albuterol-Ipratropium 3 mL Inhalation Solution NEB PRN (19:21)
[2016-07-08] MEDS: oxyCODONE-Acetamin 5-325 mg Tablet PO PRN (19:36)
--- NOTE | 2016-07-08 20:08 | NUR ---
PAIN, ANXIETY, RESPIRATORY At start of shift, pt was in BR, and pulled BR alarm cord. senior compensation consultant went into BR, pt states, "I can't breathe, the pain is getting worse." Pt pointed to mid upper abdomen. Pt very anxious, coughing, SOB, diaphoretic. RT called, arrived and administered neb treatment. Fan turned on in room. Pt sitting up in chair, continues to cough and is crying. PRN po pain pill given, pt declined tessalon pearwandy when offered, stated, "they don't work." Pt also stated, "I thought they were going to give me a pain shot." RN explained that all that has been ordered at this time in prn pain pills. Pt requested snack, continues to sit in chair, calming slightly. Continue to monitor. Call light in reach. Intentional rounding.
[2016-07-09] MEDS: Heparin 5,000 Unit/mL Inj SUBQ SCH ×3 (00:07→16:38)
[2016-07-09] MEDS: oxyCODONE-Acetamin 5-325 mg Tablet PO PRN ×4 (03:04→22:42)
[2016-07-09 05:37] VITALS: BP 107/57; PULSE 66; RESP 20; O2SAT 98
[2016-07-09 06:28] LABS: BASOPHILS % (AUTO) 0.2 % (0-3); EOSINOPHILS % (AUTO) 0.2 % (0-5); MONOCYTES % (AUTO) 15.9 % (4-12); Mean Corpuscular Hemoglobin 26.8 pg (27.0-35.0); Mean Corpuscular Volume 81.4 fL (81-100); NEUTROPHILS % (AUTO) 63.3 % (40-74); Platelet Count 197 bil/L (150-400)
[2016-07-09] MEDS: predniSONE 20 mg Tablet PO SCH ×2 (08:30→10:27)
[2016-07-09 08:41] VITALS: PULSE 58; RESP 26; O2SAT 98
[2016-07-09] MEDS: Albuterol-Ipratropium 3 mL Inhalation Solution NEB PRN ×2 (08:41→19:00)
[2016-07-09] MEDS: Insulin LISPRO 300 Unit/3 mL Inj SUBQ SCH ×4 (09:30→22:47)
--- NOTE | 2016-07-09 11:35 | NUR ---
Social Work-initial assessment: Data:EMR Reviewed. Pt is a 35 y/o female who was admitted on 07/08/16 for COPD per H&P. Pt's insurance is [employer] and PCP Kiran Haney MD. EMR reviewed. Pt's readmission score is 5-high risk. SW met with pt at bedside to discuss discharge planning, SW role explained. Pt resides at home in [place] where she remains independent with ADLs. Pt does not drive and uses the bus for transport. Pt is independent at baseline. SW discussed DPOA/ advanced directive, pt states she has not completed this and is not interested in any information. Pt declines any needs for SW. Pt states her neighbor will provide transport home. SW provided phone number and plan on white board in room. No anticipated discharge needs. SW will continue to follow if needs arise. Assessment:Pt who is independent at baseline. Plan:Pt to discharge home when medically stable via POV. anticipated discharge needs. SW will continue to follow if needs arise. JEROME Mann Addendum: 07/09/16 at 1158 by ELIZA LANDON No anticipated discharge needs*
[2016-07-09] MEDS ORDERED: Potassium Chloride 20 mEq SR Tablet PO ONE (13:10)
--- NOTE | 2016-07-09 13:24 | PCM.PNMED ---
Subjective Date of Service Jul 09, 2016 Subjective No overnight events. Heart rate labile. Patient asymptomatic. Patient continued to complain about sharp, substernal chest pain, described as constant, radiates down to the abdomen left upper quadrant. Coughing worsens. She will request for Dilaudid. Overall, patient reports feeling better, breathing better. Exam Vital Signs Vital Sign - Last Date Time Temp Pulse Resp B/P Pulse Ox O2 Delivery O2 Flow Rate FiO2 07/09/16 09:00 Supplement Oxygen 07/09/16 08:41 58 26 98 3.00 07/09/16 05:37 36.9 107/57 Intake and Output 07/08/16 07/08/16 07/09/16 Cumulative From/Thru 15:00 23:00 07:00 07/08/16 09:04 - 07/08/16 20:17 Intake Total 1000 ml 946 ml 1946 ml Output Total 1200 ml 1200 ml Balance 1000 ml -254 ml 746 ml Intake Oral 946 ml 946 ml IV Total 1000 ml 1000 ml Output Urine Total 1200 ml 1200 ml # Bowel Movements 0 0 Exam General: No acute distress, HEENT: Normocephalic, atraumatic. External ears without defect. Pupils equal, round, and reactive to light and accommodation. Anicteric sclerae, moist conjunctivae, and no lid lag. Neck: No JVD, no lymphadenopathy Cardiovascular: Regular rate and rhythm with no murmurs, rubs, or gallops appreciated Pulmonary: mildly tachypneic RR 18-22, self induced wheezing. Mild wheezes b/l in the lower base, no crackles or core strengthening Abdomen: Positive bowel tones, soft, nontender Extremities: No clubbing, cyanosis, edema, or lymphadenopathy appreciated. Skin: Normal temperature, turgor, and texture; no rash, ulcers, or subcutaneous nodules appreciated. Neurological: Cranial nerves grossly intact. Normal muscle strength, tone, and bulk. No known gait impairment. Psychiatric: Normal mood and affect. Agitated, anxious, Alert and oriented to person, place, and time. Lab and Diagnostics Result Diagram: 07/09/16 0550 07/09/16 0550 X-Rays, CTs and MRIs CT angio of the chest: FINDINGS: Image quality: There is suboptimal opacification of the pulmonary arteries. Pulmonary arteries: Pulmonary arteries are normal in size, and demonstrate no intraluminal filling defects to suggest central pulmonary embolism. There is suboptimal opacification of the pulmonary arteries limiting evaluation of subsegmental branches. Lungs and pleura: There are a few indistinct clustered ground glass opacities scattered bilaterally with a basilar predominance. No pleural effusions or pneumothorax. Central and peripheral airways are patent. Mediastinum: Heart size is normal, without pericardial effusion. There are mildly enlarged right hilar lymph nodes measuring up to 1 cm in short axis. A few mildly enlarged mediastinal lymph nodes are also demonstrated including a precarinal node measuring approximately 1 cm in short axis and a subcarinal node measuring 1.1 cm in short axis. Thoracic aorta is normal in caliber and enhancement. Esophagus is normal in caliber, without hiatal hernia. Bones and chest wall: No suspicious bony lesions. Ribs and thoracic spine appear intact throughout. Thyroid gland is partially visualized. No axillary or supraclavicular adenopathy by size criteria, with a few scattered mildly prominent axillary lymph nodes which are likely reactive. Abdomen: Visualized upper abdominal solid organs appear normal in the early arterial phase of enhancement. IMPRESSION: 1. No evidence of central pulmonary embolism, with suboptimal opacification of the pulmonary arteries limiting evaluation beyond the segmental pulmonary arteries. 2. Mildly enlarged mediastinal and right hilar lymph nodes are nonspecific and may be reactive. Findings are slightly increased from the prior study. 3. Scattered indistinct clustered ground glass opacities with a basilar predominance are decreased in prominence from the prior study. The findings suggest sequelae of a mild chronic atypical infection. Dictated by: Robert Guadarrama M.D. on 07/08/2016 at 11:33 12-lead ECG Sinus tachycardia at a rate of approximately 110bpm Additional Diagnostics Procalcitonin < 0.050 ABG from ER visit on 07/07/16: DateTimeAnalyzed 10:06:00 -_ pH ____7.391 - 7.350 7.450 pCO2 ___38.0__ -mmHg 35.0 45.0 pO2 160 -mmHg 69.0 116 HCO3- ___22.5__ -mmol/L 22.0 26.0 ABE ___-1.6__ -mmol/L -2.0 2.0 tHb ___12.8__ -g/dL O2Hb ___96.8__ -% COHb ____1.6__ -% MetHb ____0.9__ -% sO2 ___99.3__ -% FIO2 ___21.0__ -% Drawn By MT - Date/Time Notified____ 10:11:00 -_ Oxygen Device 1 SIMP MASK - Notified By MT - Notified Whom ___DR. Adelin - B 769 -mmHg tO2 ___17.8__ -Vol% Garret test _Positive - Assessment & Plan Almaz is a 35yo female with asthma who presented to the ER with 3-4 days of worsening cough and dyspnea. She has been admitted for the management of an acute asthma exacerbation. Interestingly, she reported feeling better laying back than when upright and flexing forward for posterior auscultation of the lungs which is not consistent with asthma. 1. Acute asthma exacerbation - May be brought on by viral URI and/or ongoing smoking - DuoNeb q4h while awake, home Qvar BID - Prednisone 40 mg qd till 07/12/2016 - Supplemental oxygen PRN to maintain an oxygen saturation >92% - Monitor 2. Chronic prescription opiate use - Cautious use of opiate pain medication, will not exceed her outpatient dosing - Urine drug screen ordered given the patient's level of anxiety and potential aberrant behavior with outpatient opiate medication with her reported loss of # 114 tablets of percocet. 3. Hypertension, chronic and stable - Will continue home dosing of lisinopril - Monitor 4. Diabetes Mellitus, type 2 on home insulin therapy - Medium dose correctional insulin while in the hospital - Holding her metformin at this time - Constant carbohydrate diet 5. Tobacco use, ongoing - Nicotine patch ordered as requested by the patient 6. Morbid Obesity with a BMI of 54.7 - Bariatric bed required for patient safety 7. Hyperkalemia, not present on admission, active - Kalaxalate x1 - Telemetry - [facility] tonight and in the AM 8. Nop-cardiac chest pain - trops negative on admission, no EKG changes. - Likely dyspepsia - Famotidine daily Miralax and Senna PRN constipation Ondansetron PRN nausea Patient is kept overnight due to continue wheezing and hyperkalemic, sedated discharge in the a.m. 07/10/2016 VTE Prophylaxis: Sub-Q Heparin (Unfractionated) Resuscitation Status: CPR: Attempt Resuscitation (Discussed at bedside with the patient) Harsha Yousif DO Jul 09, 2016 13:24
[2016-07-09 14:04] VITALS: BP 90/63; PULSE 60; RESP 22; O2SAT 96
--- NOTE | 2016-07-09 14:25 | NUR ---
Behavior BARREL HANDLER alerted RN, pt requesting to speak with RN. This RN went to bedside, pt is tearful, sts "Nobody is telling me anything, the doctor came into the room and told me my potassium is high and then he just left", This RN educated pt that she is being given a med to decrease her K levels. Pt, then stated "No one is telling me when my pain meds are next due. Pt instructed, by this RN, pain medication is ever 6 hours PRN, which means that she would need to ask for her pain med. Pt informed the soonest that she would be able to have her next dose of pain medication would be at 1630. Pt, then stated, "Nobody told me I was on a ADA diet, the kitchen will not bring me the food I'm requesting". Educated pt that as she has DM2, ADA diet is best option for her health. Pt made aware dietary services has changed hours and what is being stocked on the units. Pt continues to appear upset, is tearful, tossing med cups on bedside table once finished. This RN inquired if there was anything else that could be done. Pt declined. Call light with in reach, will continue to monitor
[2016-07-09 19:01] VITALS: PULSE 67; RESP 22; O2SAT 98
[2016-07-09 20:29] VITALS: BP 108/60; PULSE 57; RESP 22; O2SAT 98
[2016-07-10] MEDS: Heparin 5,000 Unit/mL Inj SUBQ SCH ×4 (00:30→23:12)
[2016-07-10 04:52] VITALS: BP 112/64; PULSE 61; RESP 24; O2SAT 98
[2016-07-10] MEDS: oxyCODONE-Acetamin 5-325 mg Tablet PO PRN ×4 (05:05→23:12)
--- NOTE | 2016-07-10 06:24 | NUR ---
Behavior Pt emotionally labile early this shift, tears about not feeling well. Said that she was not getting better. Gave back rub, encouraged pt to relax. Eventually pt rolled over and slept. Will continue to monitor, pt sleeping well.
[2016-07-10] MEDS: Insulin LISPRO 300 Unit/3 mL Inj SUBQ SCH ×4 (07:48→21:32)
[2016-07-10] MEDS: predniSONE 20 mg Tablet PO SCH (07:56)
[2016-07-10 08:28] VITALS: PULSE 91; RESP 24; O2SAT 97
--- NOTE | 2016-07-10 08:49 | NUR ---
LLQ pain pt states that she has had LLQ pain since admit. pt wants to wait for Percocet, refuses Tylenol Percocet due in approx. 20 minutes
--- NOTE | 2016-07-10 10:15 | NUR ---
cathleen off O2 pt has been off O2 for ten minutes pulse ox ranged from 94-97% RA pt tolerating well
--- NOTE | 2016-07-10 12:24 | NUR ---
room air pt continues to be room air with pulse ox at 95-97% pt continues to wear nasal canula-this RN believes that it prevents anxiety
[2016-07-10 13:29] VITALS: BP 112/68; PULSE 69; RESP 22; O2SAT 96
--- NOTE | 2016-07-10 15:22 | PCM.PNMED ---
Subjective Date of Service Jul 10, 2016 Subjective Almaz reports that she continues to have her chronic low back pain and some chest tightness when she coughs. She requests "something stronger than my oxycodone." Her cough is nonproductive. Denies any chills or nightsweats. Exam Vital Signs Vital Sign - Last Date Time Temp Pulse Resp B/P Pulse Ox O2 Delivery O2 Flow Rate FiO2 07/10/16 08:28 91 24 97 Aerosol Mask 1.50 07/10/16 04:52 36.4 112/64 Intake and Output 07/09/16 07/09/16 07/10/16 Cumulative From/Thru 15:00 23:00 07:00 07/08/16 09:04 - 07/09/16 17:50 Intake Total 1000 ml 1948 ml 4894 ml Output Total 1250 ml 1350 ml 3800 ml Balance -250 ml 598 ml 1094 ml Intake Oral 1000 ml 1948 ml 3894 ml IV Total 1000 ml Output Urine Total 1250 ml 1350 ml 3800 ml # Bowel Movements 0 0 0 Exam General: Morbidly obese female resting comfortably in bed with the head of the bed elevated to 30 degrees, appears older than her stated age. Oxygen mask in place at 1.5L/ h supplemental oxygen. HEENT: Normocephalic, atraumatic. External ears without defect. Pupils equal, round, and reactive to light and accommodation. Anicteric sclerae, moist conjunctivae. Cardiovascular: Regular rate and rhythm without murmurs, rubs, or gallops appreciated. Chest wall tender to palpation along the sternum. Pulmonary: Bibasilar inspiratory wheezes present. No rales or rhonchi. No use of accessory muscles. No tripoding. No conversational dyspnea. Abdomen: + truncal obesity. Normoactive bowel tones. Soft, nontender, nondistended. No hepatosplenomegaly or masses appreciated. Extremities: No clubbing, cyanosis, or edema bilaterally. Skin: Normal temperature and turgor Neurological: Cranial nerves grossly intact. Normal speech Alert and oriented to person, place, and time. Psychiatric: Poor eye contact. Flat affect at times and anxious at other times. IVs and Medications Medications Reviewed: Medications were reviewed in detail Lab and Diagnostics Result Diagram: 07/09/16 0550 07/10/16 0866 12-lead ECG Sinus tachycardia at a rate of approximately 110bpm Additional Diagnostics Procalcitonin < 0.050 Assessment & Plan Almaz is a 35yo female with asthma who presented to the ER with 3-4 days of worsening cough and dyspnea. She has been admitted for the management of an acute asthma exacerbation which initially required supplemental oxygen. Nursing has weaned her off of supplemental oxygen today with success since the time of examination. 1. Acute asthma exacerbation, improving - Possibly triggered by viral URI and/or ongoing smoking - DuoNeb q4h while awake, home Qvar BID - Prednisone 40 mg daily for a 5 day steroid burst therapy - Supplemental oxygen PRN to maintain an oxygen saturation >92%, not currently requiring supplemental oxygen - Continuing to monitor 2. Chronic prescription opiate use - Cautious use of opiate pain medication, keeping with her outpatient opiate dosing 3. Hypertension, chronic and stable - Continuing home dosing of lisinopril - Monitoring 4. Diabetes Mellitus, type 2 on home insulin therapy - Medium dose correctional insulin while in the hospital - Holding her metformin at this time - Constant carbohydrate diet 5. Tobacco use, ongoing - Nicotine patch ordered as requested by the patient 6. Morbid Obesity with a BMI of 54.7 - Bariatric bed required for patient safety 7. Hyperkalemia, not present on admission, resolved - Kalaxalate x1 given and her potassium returned to normal - Repeat BMP in the morning 8. Nop-cardiac chest pain - trops negative on admission, no EKG changes. - Likely musculoskeletal due to coughing, possibly due to dyspepsia - Famotidine daily 9. Anxiety - Suspect this is chronic and she may benefit from an outpatient follow up Miralax and Senna PRN constipation Ondansetron PRN nausea Dispo: Anticipate discharge tomorrow if the patient is able to remain stable without supplemental oxygen until tomorrow. VTE Prophylaxis: Sub-Q Heparin (Unfractionated) Resuscitation Status: CPR: Attempt Resuscitation Time spent 30 minutes Attending Statement I have seen and evaluated patient at bedside, in addition to directly supervising care provided by resident physician. I agree with above documentation. Funmi Jean DO Jul 10, 2016 10:37 Andre Robbins DO Jul 10, 2016 16:54
--- NOTE | 2016-07-10 15:48 | NUR ---
room air pt has been on RA for approximately 6.5 hours with nasal canula in nose-pulse ox 95-97%.
[2016-07-10 20:54] VITALS: PULSE 57; RESP 22; O2SAT 93
[2016-07-10] MEDS: Albuterol-Ipratropium 3 mL Inhalation Solution NEB PRN (20:54)
[2016-07-10 22:24] VITALS: BP 102/53; PULSE 68; RESP 20; O2SAT 96
[2016-07-11] MEDS: oxyCODONE-Acetamin 5-325 mg Tablet PO PRN ×2 (05:19→10:46)
--- NOTE | 2016-07-11 05:23 | NUR ---
Breathing/Pain Pt denies chest pain, sob, n/v and abd discomfort. Currently on RA tolerating well. VSS, Insulin administered per sliding scale. Pain medication administered PRN. Hourly rounding done, and pt has slept most of the night.
[2016-07-11 05:32] VITALS: BP 118/76; PULSE 50; RESP 20; O2SAT 96
[2016-07-11 07:33] LABS: BASOPHILS % (AUTO) 0.4 % (0-3); EOSINOPHILS % (AUTO) 0.1 % (0-5); MONOCYTES % (AUTO) 10.6 % (4-12); Mean Corpuscular Hemoglobin 26.4 pg (27.0-35.0); Mean Corpuscular Volume 81.9 fL (81-100); NEUTROPHILS % (AUTO) 27.8 % (40-74); Platelet Count 196 bil/L (150-400)
[2016-07-11] MEDS: Insulin LISPRO 300 Unit/3 mL Inj SUBQ SCH (07:43)
[2016-07-11] MEDS: Heparin 5,000 Unit/mL Inj SUBQ SCH (08:05)
[2016-07-11] MEDS: predniSONE 20 mg Tablet PO SCH (08:05)
[2016-07-11] MEDS ORDERED: PRED-508 PO (08:34)
[2016-07-11 08:37] VITALS: PULSE 58; RESP 20; O2SAT 94
--- NOTE | 2016-07-11 09:22 | PCM.DIMED ---
Funmi Jean DO 07/11/16 0922: Discharge Instructions Date of Service Jul 11, 2016 Dates of Hospitalization Jul 08, 2016 at 13:46 Discharge Diagnosis Discharge Diagnosis Acute asthma exacerbation, improving Chronic prescription opiate use Hypertension, chronic and stable Diabetes Mellitus, type 2 on home insulin therapy Tobacco use, ongoing Morbid Obesity with a BMI of 54.7 - Bariatric bed required for patient safety Hyperkalemia, not present on admission, resolved Non-cardiac chest pain Anxiety Medication Instructions For the next 2 days, take 2 tablets of prednisone (40mg) by mouth once daily. Continue with your regular home medications. We have provided you with a one time only script of oxycodone-acetaminophen 5/ 325mg tablets, #25 tablets prescribed. Make sure that you do not exceed 4000mg of acetaminophen in a 24hour period. Diet Diabetic Activity No restrictions Call your provider Fever or Chills, Shortness of breath, Bleeding, Chest pain, Vomitting, Excessive diarrhea, Weakness (unilateral) Patient Instructions Follow-up plan An appointment with Dr Haney has been scheduled for you, please let his office know if you are not able to keep that appointment. Follow-up Provider: Kiran Haney MD Follow-up with PCP in: Other Andre Robbnis DO 07/11/16 1341: Discharge Instructions Attending's Statement Read and agree Funmi Jean DO Jul 11, 2016 09:22 Andre Robbins DO Jul 11, 2016 13:41
[2016-07-11 10:32] VITALS: PULSE 57; RESP 22; O2SAT 94
[2016-07-11] MEDS: Albuterol-Ipratropium 3 mL Inhalation Solution NEB PRN (10:32)
[2016-07-11] MEDS ORDERED: OXYC1TAB24 PO (10:37)
--- NOTE | 2016-07-11 10:49 | PCM.DC.MED ---
Discharge Summary Date of Service Jul 11, 2016 Dates of Hospitalization Date of Hospital Admission Jul 08, 2016 at 13:46 Date of Discharge: Jul 11, 2016 Providers: Admitting Physician: Davon Boo MD Primary Care Physician: Kiran Haney MD Attending Physician: Davon Boo MD Diagnosis at Time of Discharge Diagnosis at Time of Discharge Acute asthma exacerbation, improving Chronic prescription opiate use Hypertension, chronic and stable Diabetes Mellitus, type 2 on home insulin therapy Tobacco use, ongoing Morbid Obesity with a BMI of 54.7 - Bariatric bed required for patient safety Hyperkalemia, not present on admission, resolved Non-cardiac chest pain Anxiety Enlarged hilar lymph nodes, present on admission Procedures XRay, CTs & MRIs CT angio of the chest: FINDINGS: Image quality: There is suboptimal opacification of the pulmonary arteries. Pulmonary arteries: Pulmonary arteries are normal in size, and demonstrate no intraluminal filling defects to suggest central pulmonary embolism. There is suboptimal opacification of the pulmonary arteries limiting evaluation of subsegmental branches. Lungs and pleura: There are a few indistinct clustered ground glass opacities scattered bilaterally with a basilar predominance. No pleural effusions or pneumothorax. Central and peripheral airways are patent. Mediastinum: Heart size is normal, without pericardial effusion. There are mildly enlarged right hilar lymph nodes measuring up to 1 cm in short axis. A few mildly enlarged mediastinal lymph nodes are also demonstrated including a precarinal node measuring approximately 1 cm in short axis and a subcarinal node measuring 1.1 cm in short axis. Thoracic aorta is normal in caliber and enhancement. Esophagus is normal in caliber, without hiatal hernia. Bones and chest wall: No suspicious bony lesions. Ribs and thoracic spine appear intact throughout. Thyroid gland is partially visualized. No axillary or supraclavicular adenopathy by size criteria, with a few scattered mildly prominent axillary lymph nodes which are likely reactive. Abdomen: Visualized upper abdominal solid organs appear normal in the early arterial phase of enhancement. IMPRESSION: 1. No evidence of central pulmonary embolism, with suboptimal opacification of the pulmonary arteries limiting evaluation beyond the segmental pulmonary arteries. 2. Mildly enlarged mediastinal and right hilar lymph nodes are nonspecific and may be reactive. Findings are slightly increased from the prior study. 3. Scattered indistinct clustered ground glass opacities with a basilar predominance are decreased in prominence from the prior study. The findings suggest sequelae of a mild chronic atypical infection. Dictated by: Robert Guadarrama M.D. on 07/08/2016 at 11:33 ECG 12 Lead Sinus tachycardia at a rate of approximately 110bpm Other Diagnostics Procalcitonin < 0.050 Brief History Per H&P: Almaz is a 35yo female with ongoing tobacco use, asthma, and chronic prescription opiate use for low back pain who presented to the emergency department with 3-4 days of worsening cough with yellow-green sputum and dyspnea for which she reports using her albuterol inhaler every 4hours for the past 3 days. She was seen in the ER on 07/07/16 complaining of cough, nausea, vomiting, and diarrhea in addition to diaphoresis. She was given prescriptions for levofloxacin, ondansetron, and codeine cough syrup. No improvement with the codeine cough syrup. Her boyfriend has had a cough and runny nose, though he is not nearly as ill per patient report and he is improving. She denies any nasal congestion or rhinorrhea. She denies any fever, but admits to chills and some night sweats. She reports nausea and chest wall tenderness "from all that coughing." Today, she denies having had any diarrhea recently. She reports compliance with twice daily Qvar use. She requests Dilaudid stating that she did not have anything for pain. When asked about her home opiate medication, she states that she "misplaced" her pill bottle of oxycodone-acetaminophen 5/325mg tablets #114 that she picked up from her pharmacy on 06/29/16 and has not had any today. She has received Dilaudid 1mg IV x 2 while in the emergency department. She was also given Lorazepam 1mg PO in the ER at 09:59 today. Hospital Course Addressed the following during her hospitalization: Almaz is a 35yo female with asthma who presented to the ER with 3-4 days of worsening cough and dyspnea. She has been admitted for the management of an acute asthma exacerbation which initially required supplemental oxygen. Nursing has weaned her off of supplemental oxygen today with success since the time of examination. 1. Acute asthma exacerbation, improving - Likely triggered by viral URI and/or ongoing smoking - DuoNeb q4h while awake, home Qvar BID - Prednisone 40 mg daily for a 5 day steroid burst therapy, received 3 days of the course during her hospitalization - Supplemental oxygen initially provided to maintain an oxygen saturation >92%, did not require supplemental oxygen for the last 24hours of her hospitalization 2. Chronic prescription opiate use - Cautious use of opiate pain medication, kept her outpatient opiate dosing - Prescribed a prescription for #25tablets of her chronic pain medication as she misplaced her pill bottle, she has been advised to discuss with her PCP, Dr Haney. 3. Hypertension, chronic and stable - Continued home dosing of lisinopril - Monitored 4. Diabetes Mellitus, type 2 on home insulin therapy - Medium dose provided correctional insulin while in the hospital - Held her metformin dosing - Constant carbohydrate diet provided 5. Tobacco use, ongoing - Nicotine patch ordered as requested by the patient 6. Morbid Obesity with a BMI of 54.7 - Bariatric bed required for patient safety 7. Hyperkalemia, not present on admission, resolved - Kalaxalate x1 given and her potassium returned to normal - Repeat BMPs showed normal potassium 8. Nop-cardiac chest pain - troponin levels <0.010, no EKG changes. - Likely musculoskeletal due to coughing, possibly due to dyspepsia - Famotidine daily provided 9. Anxiety - Suspect this is chronic and she may benefit from an outpatient evaluation 10. Mediastinal lymphadenopathy of unclear etiology - Possibly reactive, consider reimaging as an outpatient to evaluate for resolution Miralax and Senna PRN constipation Ondansetron PRN nausea Exam Vital Signs (Last) Date Time Temp Pulse Resp B/P Pulse Ox O2 Delivery O2 Flow Rate FiO2 07/11/16 10:32 57 22 94 Room Air 07/11/16 05:32 36.8 118/76 07/10/16 08:28 1.50 Exam On the date of discharge: General: Morbidly obese female resting comfortably in bed with the head of the bed elevated to 30 degrees, appears older than her stated age. Saturating well on room air. HEENT: Normocephalic, atraumatic. PERRLA, moist mucus membranes Cardiovascular: Regular rate and rhythm without murmurs, rubs, or gallops appreciated. Pulmonary: Subtle bibasilar inspiratory wheezes present. No rales or rhonchi. No use of accessory muscles. No tripoding. No conversational dyspnea. Abdomen: + truncal obesity. Normoactive bowel tones. Soft, nontender, nondistended. No hepatosplenomegaly or masses appreciated. Extremities: No clubbing, cyanosis, or edema bilaterally. Skin: Normal temperature and turgor Neurological: Cranial nerves grossly intact. Normal speech. Alert and oriented to person, place, and time. Psychiatric: Poor eye contact. Flat affect at times and anxious at other times. Test 07/08/16 10:01 07/08/16 11:00 07/08/16 15:06 07/09/16 05:50 Troponin T < 0.010ug/L (0.0-0.011) Pro-B-Type Natriuretic Peptide 496.0pg/mL (0-130) Procalcitonin < 0.05ng/mL (See Comment) Urine Opiates Screen Negative Urine Methadone Screen Negative Urine Barbiturates Screen Negative Urine Amphetamines Screen Negative Urine Benzodiazepines Screen Negative Urine Cocaine Metabolite Screen Negative Urine Cannabinoids Screen Negative Total Bilirubin 0.2mg/dL (0.0-1.2) Aspartate Amino Transf (AST/SGOT) 33U/L (0-50) Alanine Aminotransferase (ALT/SGPT) 22U/L (0-32) Alkaline Phosphatase 64U/L (25-150) Total Protein 7.1g/dL (6.4-8.4) Albumin 3.4g/dL (3.4-5.0) Test 07/10/16 08:35 07/11/16 07:10 Sodium Level 138mEq/L (134-144) Potassium Level 4.5mEq/L (3.5-5.2) Chloride Level 103mEq/L (97-108) Carbon Dioxide Level 23mmol/L (18-29) Blood Urea Nitrogen 14mg/dL (6-20) Creatinine 0.75mg/dL (0.57-1.00) Estimat Glomerular Filtration Rate 112mL/min (>59) Glucose Level 221mg/dL (60-99) Calcium Level 8.8mg/dL (8.5-10.1) White Blood Count 7.2th/mm3 (3.8-10.1) Red Blood Count 4.93mil/mm3 (3.90-5.20) Hemoglobin 13.0g/dL (12.0-15.6) Hematocrit 40.4% (35.0-46.0) Mean Corpuscular Volume 81.9fL (81-100) Mean Corpuscular Hemoglobin 26.4pg (27.0-35.0) Mean Corpuscular Hemoglobin Concent 32.2% (32.0-37.0) Red Cell Distribution Width 13.3% (12.3-15.4) Platelet Count 196bil/L (150-400) Neutrophils (%) (Auto) 27.8% (40-74) Lymphocytes (%) (Auto) 61.0% (14-46) Monocytes (%) (Auto) 10.6% (4-12) Eosinophils (%) (Auto) 0.1% (0-5) Basophils (%) (Auto) 0.4% (0-3) Discharge Medications Discharge Medications Beclomethasone Dipropionate (Qvar) 8.7 Gm Aer.w.adap 2 PUFFS IH BID (Reported) Glimepiride (Glimepiride) 4 Mg Tablet 4 MG PO BID (Reported) Lisinopril (Lisinopril) 10 Mg Tablet 10 MG PO QAM (Reported) Metformin (Glucophage) 1,000 Mg Tablet 1,000 MG PO BID (Reported) Omeprazole (Omeprazole) 20 Mg Capsule.dr 20 MG PO DAILY Prescribed by: JEFFREY NAGY MD Prednisone (Deltasone) 20 Mg Tablet 40 MG PO DAILY Take 2 tablets (40mg) by mouth once daily for 2 days Prescribed by: LUIZA LAZO DO As needed Albuterol HFA (Proair HFA) 8.5 Gm Hfa.aer.ad 2-4 PUFFS INHALATION Q6H PRN PRN For Shortness of Breath (Reported) Benzonatate (Tessalon Perle) 100 Mg Capsule 200 MG PO TID PRN PRN For Cough Prescribed by: RANJAN RANDLE MD Guaifenesin/Codeine Phosphate (Cheratussin AC Syrup) 118 Ml Liquid 10 ML PO Q4H PRN PRN For Cough Prescribed by: CHAGO GOODWIN DO Insulin Glargine (Lantus U100 Insulin Vial) 100 Unit/Ml Vial 45 UNIT SUBQ QPM- INSULIN PRN PRN HYPERGLYCEMIA (Reported) FOR BLOOD GLUCOSE >130 Ipratropium/Albuterol Sulfate (Iprat-Albut 0.5-3(2.5) mg/3 mL Inhalant Soln) 3 Ml Ampul.neb 3 ML IH Q6 PRN PRN For Shortness of Breath (Reported) Ondansetron ODT (Zofran ODT) 4 Mg Tablet 4 MG PO Q4H PRN PRN For Nausea Prescribed by: CHAGO GOODWIN, DO Oxycodone HCl/Acetaminophen 5-325 (Endocet 5-325) 1 Each Tablet 1 TABLET PO TID PRN PRN For Pain Prescribed by: RANJAN RANDLE MD oxyCODONE-Acetaminophen 5-325 mg (oxyCODONE-Acetaminophen 5-325 mg) 1 Each Tablet 1-2 TAB PO Q6H PRN PRN For Pain Prescribed by: LUIZA LAZO, DO Additional med instructions For the next 2 days, take 2 tablets of prednisone (40mg) by mouth once daily. Continue with your regular home medications. We have provided you with a one time only script of oxycodone-acetaminophen 5/ 325mg tablets, #25 tablets prescribed. Make sure that you do not exceed 4000mg of acetaminophen in a 24hour period. Followup Plan Disposition: Home Follow-up plan An appointment with Dr Haney has been scheduled for you, please let his office know if you are not able to keep that appointment. Discharge Diet: Diabetic Discharge Activity: No restrictions Follow-up Provider: Kiran Haney MD Follow-up with PCP in: Other Time spent 35 minutes Attending Statement I have seen and evaluated patient at bedside and directly supervised in the care provided by resident physician. I agree with above documentation. copies to: Kiran Haney MD, Rachel M DO Jul 11, 2016 10:48 Andre Robbins DO Jul 11, 2016 13:43
--- NOTE | 2016-07-11 11:26 | NUR ---
Social Work-discharge: Data:EMR reviewed. Pt is on day 3 of hospitalization for COPD exacerbation per H&P. Pt is medically stable to discharge home today. Pt has been up independent in her room. Pt's neighbor to provide transport home today. No discharge needs identified. SW will continue to follow if needs arise. Assessment:pt who is independent at baseline. Plan:Pt to discharge home when medically stable via POV. No discharge needs identified. SW will continue to follow if needs arise. JEROME Mann
--- NOTE | 2016-07-11 11:55 | NUR ---
discharge paperwork reviewed, IV removed, belongings packed with patient. pt chooses to walk to private car to return to private residence. pt denies pain/distress.
== END 2016-07-11 11:56 | disposition home or self-care (01) ==
LOC: SED 08:56 → INTOOBSV 13:46 → MPC 13:46
PROVIDERS: ADMIT Family Medicine; ATTEND Family Medicine
DX: J45.901 Unspecified asthma with (acute) exacerbation (principal); E87.5 Hyperkalemia; J44.9 Chronic obstructive pulmonary disease, unspecified; R07.89 Other chest pain; I10 Essential (primary) hypertension; E11.9 Type 2 diabetes mellitus without complications; E66.01 Morbid (severe) obesity due to excess calories; Z68.43 Body mass index [BMI] 50.0-59.9, adult; F41.9 Anxiety disorder, unspecified; F17.210 Nicotine dependence, cigarettes, uncomplicated; Z79.4 Long term (current) use of insulin; R59.0 Localized enlarged lymph nodes; Z79.84 Long term (current) use of oral hypoglycemic drugs; Z79.891 Long term (current) use of opiate analgesic
CPT/HCPCS: 36415; 36620; 71275; 80048; 80053; 82308; 82375; 82803; 83036; 83880; 84484; 85025; 93005; 94640; 94664; 94799; 96365; 96375; 96376; 99285; G0378; G0480; J1170; J1644; J1815; J7030; J7613; J7620; Q9967

== ENCOUNTER 2016-08-05 09:56 | Emergency (ER) | payer OTHER ==
[~2016-08-05] VITALS: Ht 167.6 cm; Wt 158.2 kg
[~2016-08-05 09:56] MED LIST changes: -LEVO750T9 PO; -PRE20 PO; +PRED-508 PO; -PRED50TA PO
[2016-08-05 10:06] VITALS: BP 132/67; PULSE 101; RESP 20; O2SAT 97
[2016-08-05] MEDS ORDERED: Codeine-guaiFENesin 10 mL Syrup PO ONE (10:20)
[2016-08-05] MEDS ORDERED: predniSONE 20 mg Tablet PO ONE (10:35)
[2016-08-05] MEDS ORDERED: Albuterol 2.5 mg/3 mL Inhalation Solution NEB PRN (10:35)
[2016-08-05] MEDS ORDERED: Albuterol-Ipratropium 3 mL Inhalation Solution NEB ONE (10:40)
[2016-08-05 10:44] VITALS: PULSE 109; RESP 21; O2SAT 94
--- NOTE | 2016-08-05 10:49 | DRSVH ---
PROCEDURE: X-RAY CHEST ONE VIEW, PORTABLE ([id number]) INDICATIONS: COPD TECHNIQUE: One view of the chest was acquired. COMPARISON: None. FINDINGS: Surgical changes and devices: None. Lungs and pleura: No pleural effusions or pneumothorax. Lungs are clear. Mediastinum: Mediastinal contours appear normal. Heart size is normal. Bones and chest wall: No suspicious bony lesions. Overlying soft tissues appear unremarkable. IMPRESSION: No acute cardiopulmonary findings. Dictated by: Tamara Ace M.D. on 08/05/2016 at 10:47 Approved by: Tamara Ace M.D. on 08/05/2016 at 10:47
[2016-08-05] MEDS ORDERED: Albuterol-Ipratropium 3 mL Inhalation Solution NEB SCH (12:30)
--- NOTE | 2016-08-05 12:59 | ED.REPORT ---
HPI-Dyspnea / Wheezing Date of Service Aug 05, 2016 ED Provider: Patricia Calero MD 36yoF with PMH remarkable for COPD and chronic abdominal pain presents with 3 days of worsening shortness of breath, cough and wheezing. The patient states that three days ago she began to notice symptoms that she states feels like her regular COPD exacerbations. The patient states that the cough was productive initially, but has since become less productive and more painful. The patient states that she was using her rescue inhalers and duo nebulizers initially but two days ago she felt the inhaler was not working, so she switched to just nebulizer treatments and was doing them every two hours. The patient states that she has been feeling hot but does not have a thermometer and has been sweating more than normal. The patient states that she also has abdominal pain that while chronic, it has been made worse with coughing the last few days. Nursing Notes Stated Complaint: ABD PAIN,SOB Chief Complaint: Respiratory Complaints Nursing Notes Reviewed: Yes Allergies: Coded Allergies: methylprednisolone (Verified Allergy, Severe, Nausea,Vomiting, 07/17/16) hydrocodone bitartrate (Verified Allergy, Unknown, 07/17/16) TAKES PERCOCET AT HOME ibuprofen (Verified Allergy, Unknown, 07/17/16) ketorolac tromethamine (Verified Allergy, Unknown, 07/17/16) propoxyphene napsylate (Verified Allergy, Unknown, 07/17/16) Scheduled Azithromycin (Zithromax (Z-Dusty)) 250 Mg Tablet 250 MG PO DIRECTED Take two tablets by mouth on day 1, then take one tablet daily on days 2 through 5. Beclomethasone Dipropionate (Qvar) 8.7 Gm Aer.w.adap 2 PUFFS IH BID Glimepiride (Glimepiride) 4 Mg Tablet 4 MG PO BID Lisinopril (Lisinopril) 10 Mg Tablet 10 MG PO QAM Metformin (Glucophage) 1,000 Mg Tablet 1,000 MG PO BID Omeprazole (Omeprazole) 20 Mg Capsule.dr 20 MG PO DAILY Prednisone (Deltasone) 20 Mg Tablet 40 MG PO DAILY Take 2 tablets (40mg) by mouth once daily for 2 days Prednisone (PredniSONE) 20 Mg Tablet 40 MG PO DAILY Scheduled PRN Albuterol HFA (Proair HFA) 8.5 Gm Hfa.aer.ad 2-4 PUFFS INHALATION Q6H PRN PRN For Shortness of Breath Benzonatate (Tessalon Perle) 100 Mg Capsule 200 MG PO TID PRN PRN For Cough Benzonatate (Benzonatate) 200 Mg Capsule 200 MG PO Q8H PRN PRN For Cough Guaifenesin/Codeine Phosphate (Cheratussin AC Syrup) 118 Ml Liquid 10 ML PO Q4H PRN PRN For Cough Guaifenesin/Codeine Phosphate (Codeine-Guaifen 10-100 mg/5 ml) 120 Ml Liquid 10 ML PO Q4H PRN PRN For Cough Insulin Glargine (Lantus U100 Insulin Vial) 100 Unit/Ml Vial 45 UNIT SUBQ QPM- INSULIN PRN PRN HYPERGLYCEMIA FOR BLOOD GLUCOSE >130 Ipratropium/Albuterol Sulfate (Iprat-Albut 0.5-3(2.5) mg/3 mL Inhalant Soln) 3 Ml Ampul.neb 3 ML IH Q6 PRN PRN For Shortness of Breath Ondansetron ODT (Zofran ODT) 4 Mg Tablet 4 MG PO Q4H PRN PRN For Nausea Oxycodone HCl/Acetaminophen 5-325 (Endocet 5-325) 1 Each Tablet 1 TABLET PO TID PRN PRN For Pain oxyCODONE-Acetaminophen 5-325 mg (oxyCODONE-Acetaminophen 5-325 mg) 1 Each Tablet 1-2 TAB PO Q6H PRN PRN For Pain General Time Seen by MD: 10:10 Chief Complaint Cough, Shortness of breath, Wheezing Hx Obtained From: Patient Arrived By: Walk-in Sudden in Onset?: No Onset Occurred: 3 days ago Context of Onset: Upper resp infection Symptom Duration: Since onset Location: : Back (and abdomen) Quality: Same as prior Severity: Current: Moderate (chronic pain) Recent Healthcare: Recent doctor visit, Recent hospitalization Similar Sx Previous: Yes Risk Factors Well's Criteria for PE Well's PE Score: 0-2 pts (low risk 3.6%) Past Medical History Past Medical History Notes: hospitalized in June 2016 for COPD exacerbation Patient has had numerous ED visits for abdominal pain and SOB Records indicate [address] scans over the years, all negative Past Medical History Diverticulitis Chronic back pain Chronic narcotic use Morbid obesity Recurrent bronchitis Pancreatitis Polycystic ovarian syndrome Arthritis Reports: Asthma, COPD, Diabetes mellitus, Hypertension Reports: Obesity Past Surgical History Reports: Cholecystectomy Family History Mother from a blood clot in her leg Smoking History Current Every Day Smoker Social History Alcohol Use: "Social" Drug Use: THC Other Social History: Local resident Ambulatory Status Independent Review of Systems Ears / Nose / Throat: Reports: Throat pain (when coughing), Denies: Hearing loss bilateral, Nasal congestion Respiratory: Reports: Non-productive cough, Shortness of breath, Wheezing, Denies: Hemoptysis Cardiovascular: Denies: Dyspnea on exertion, Orthopnea, Palpitations Musculoskeletal: Reports: Back pain, Thoracic pain, Denies: Extremity swelling Skin: Reports Diaphoresis, Denies Swelling, Denies Unexplained bruises Allergy / Immune: Denies: Allergic reaction, Rhinorrhea Complete sys rev & neg: except as marked. Physical Exam Initial Vital Signs Vital Signs (First) Date Time Temp Pulse Resp B/P Pulse Ox O2 Delivery O2 Flow Rate FiO2 08/05/16 10:06 37.4 101 20 132/67 97 Room Air Initial VS: Reviewed Head / Eyes: Atraumatic, Normocephalic, PERRL ENT: Mucous membranes moist, Conjunctiva normal, No scleral icterus Abdomen / GI: Soft, No guarding, No rebound, No distention Back: No CVA tenderness Lymphatic: No lymphadenopathy Extremities: Vascular intact, Neuro intact, No swelling, No tenderness Skin: Warm, Dry, No cyanosis Neurologic: Alert, Oriented, Nonfocal Psychiatric: Normal thought content General/Constitutional: Alert Distress / Hydration: Positive: Distress mild Appearance / Presentation: Positive: Ill appearing/not toxic, Obese, morbidly Neck: Atraumatic, Supple, No meningismus, Full range of motion, No swelling, Non-tender, No masses Respiratory / Chest: No respiratory distress, No rales, No rhonchi, No chest tenderness Diminished Breath Sounds: Positive: Decreased bilateral Wheezing / Retractions: Positive: Wheeze insp/exp diffuse, Wheezing moderate Patient's air movement and wheezing had improved in all lung rizzo after steroids and nebulizer treatments administered Cardiovascular: Cap refill not delayed, Peripheral circulation NL Heart Rate / Rhythm: Positive: Tachycardia Heart Sounds / Murmur: Positive: Heart sounds diminished Periph CV / BP Differential: Positive: Peripheral pulses 2+ tachycardia continued after breathing treatments, no JVD or edema noted Abdomen: Atraumatic, No guarding, No rebound, BS normoactive, No distention, No hernia, No palpable mass, No pulsatile mass Tenderness/Guarding/Rebound: Positive: Tender diffuse Lower Extremity / Pelvis / MS: Inspection NL, No swelling, Non-tender, No erythema, No deformity, Neurologic intact, No edema Skin: Color NL, No rash, Warm, Dry, Turgor NL Abnormal Mood/Affect: Positive: Anxious, Labile Interpretation & Diagnostics X-Ray Chest Interpretation Chest Xray Interpretation: IMPRESSION: No acute cardiopulmonary findings. Dictated by: Tamara Ace M.D. on 08/05/2016 at 10:47 NL X-Ray Chest Findings: No acute disease Procedures Procedure Notes: Unable to get IV access or blood draw Re-Eval/Medical Decision Med Decision/Clinical Course Patient has signs and symptoms consistent with COPD exacerbation Viral URI panel is still pending Treat COPD exacerbation as outpatient with PO prednisone, duonebs, and oral antibiotic consistent with Uptodate recommendations even without sign of bacterial process Chronic pain remain a problem Discharge & Departure Impression: Primary Impression: COPD exacerbation Additional Impressions: Shortness of breath Abdominal pain Disposition: Home Discharge Condition All VS Reviewed: Yes Condition: Stable Patient Instructions: Asthma (ED), Chronic Obstructive Pulmonary Disease (ED) Additional Instructions: During your visit to [facility] Emergency Department we were unable to obtained blood work for infectious markers and you requested we stop trying to obtain blood. We obtained xray imaging of your chest which showed no acute pneumonia We obtained nasal swabs checking for influenza and other viral illnesses, as this does not appear to be a bacterial infection We will send you home with - course of Azithromycin Antibiotics please finish this prescription - course of oral Prednisone Steroids please finish this prescription - Tessalon Cough medicine to be taken as needed - Robitussin Cough medicine to be taken as needed - an inhaler spacer which you were educated on how to use correctly - you have stated you have plenty of nebulizers and inhalers left at home, please use these as directed Do not hesitate to call emergency services or your primary care physician if you experience any of the following. -High unrelenting fevers. -Uncontrolled vomiting. -worsening lightheadedness or loss of consciousness. -worsening severe chest pain or severe shortness of breath Follow up with your primary care physician in 1-2 weeks time following your emergency department visit for medication checks and general well-being. Referrals: Kiran Haney MD (PCP) Attending Statement Patient seen and examined. Unable to get blood due to venipuncture complication. Lungs with moderate wheeze clear significantly with excellent air movement after nebulizer. Instructed on appropriate use of spacer and spacer given Patient continued to complain of pain. She has been out of her chronic pain medication for about 2 weeks now has artery had 2 extra refills and will be due for another refill on Sunday. We declined to give her any additional narcotic pain medication or refills today copies to: Kiran Haney MD, NICHOLAS K DO Aug 05, 2016 12:59 Patricia Calero MD Aug 05, 2016 14:08
[2016-08-05 13:00] VITALS: BP 130/69; PULSE 87; RESP 17; O2SAT 95
[2016-08-05] MEDS ORDERED: BENZ200C44 PO (13:15)
[2016-08-05] MEDS ORDERED: PRE20 PO (13:15)
[2016-08-05] MEDS ORDERED: GUAI120L57 PO (13:15)
[2016-08-05] MEDS ORDERED: AZIT250T4 PO (13:15)
[2016-08-05 14:05] VITALS: BP 143/61; PULSE 96; RESP 20; O2SAT 95
[2016-08-05 14:06] VITALS: BP 143/61; PULSE 96; RESP 20; O2SAT 95
== END 2016-08-05 14:08 | disposition home or self-care (01) ==
LOC: SED 09:56
DX: J44.1 Chronic obstructive pulmonary disease with (acute) exacerbation (principal); R10.84 Generalized abdominal pain; E11.9 Type 2 diabetes mellitus without complications; I10 Essential (primary) hypertension; F17.200 Nicotine dependence, unspecified, uncomplicated; F12.10 Cannabis abuse, uncomplicated; E66.01 Morbid (severe) obesity due to excess calories; Z79.84 Long term (current) use of oral hypoglycemic drugs; Z79.52 Long term (current) use of systemic steroids; Z79.51 Long term (current) use of inhaled steroids; Z79.4 Long term (current) use of insulin; Z88.5 Allergy status to narcotic agent; Z88.8 Allergy status to other drugs, medicaments and biological substances; Z88.6 Allergy status to analgesic agent
CPT/HCPCS: 71010; 87633; 87804; 94664; 99284; J7620

== ENCOUNTER 2016-08-06 20:25 | Inpatient (IN) | payer OTHER, MEDICAID ==
[~2016-08-06] VITALS: Ht 165.1 cm; Wt 171.5 kg
[~2016-08-06 20:25] MED LIST changes: +AZIT250T4 PO; +BENZ200C44 PO; +GUAI120L57 PO; +PRE20 PO
[2016-08-06 20:33] VITALS: BP 132/92; PULSE 109; RESP 31; O2SAT 99
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
[2016-08-06] MEDS ORDERED: 0.9% Sodium Chloride 1,000 ML IV ONE (21:28)
[2016-08-06] MEDS ORDERED: predniSONE 20 mg Tablet PO ONE (21:30)
[2016-08-06] MEDS ORDERED: Albuterol 2.5 mg/3 mL Inhalation Solution NEB ONE (21:30)
[2016-08-06 22:11] VITALS: PULSE 104; RESP 22; O2SAT 98
[2016-08-06] MEDS ORDERED: [UNRECOGNIZED DRUG - OTHER] PO ONE (22:30)
[2016-08-06] MEDS ORDERED: [UNRECOGNIZED DRUG - OTHER] PO ONE (22:50)
[2016-08-06] MEDS ORDERED: Codeine-guaiFENesin 10 mL Syrup PO ONE (22:55)
[2016-08-07] VITALS (14 sets, daily range): BP systolic 94–148; BP diastolic 40–80; PULSE 75–102; RESP 18–27; O2SAT 78–99
[2016-08-07] MEDS ORDERED: Levalbuterol 1.25 mg/0.5mL Inhalation Solution NEB ONE ×2 (01:40→04:25)
[2016-08-07] MEDS ORDERED: Magnesium Sulf 4 Gm/100 mL H2O 4 GM in IV Premix 1 EACH IV ONE (04:10)
[2016-08-07 04:17] LABS: BASOPHILS % (AUTO) 0.3 % (0-3); EOSINOPHILS % (AUTO) 0.5 % (0-5); MONOCYTES % (AUTO) 12.7 % (4-12); Mean Corpuscular Hemoglobin 26.9 pg (27.0-35.0); NEUTROPHILS % (AUTO) 45.9 % (40-74); Platelet Count 160 bil/L (150-400)
[2016-08-07 04:29] LABS: Magnesium 1.7 mg/dL (1.6-2.6)
[2016-08-07] MEDS ORDERED: (U-500) Insulin Regluar, Human 500 Unit/mL Syringe SUBQ ONE (04:40)
[2016-08-07] MEDS ORDERED: Insulin Human REGular-Omnicell 100 Unit/mL SUBQ ONE (04:50)
--- NOTE | 2016-08-07 05:15 | ABG ---
DateTimeAnalyzed 05:08:00 -_ pH ____7.301 - 7.350 7.450 pCO2 ___51.4__ -mmHg 35.0 45.0 pO2 ___83.1__ -mmHg 69.0 116 HCO3- ___24.6__ -mmol/L 22.0 26.0 ABE ___-1.8__ -mmol/L -2.0 2.0 tHb ___12.1__ -g/dL O2Hb ___93.1__ -% COHb ____1.0__ -% MetHb ____1.0__ -% sO2 ___95.0__ -% FIO2 ___28.0__ -% Drawn By MM - Date/Time Notified____ 05:14:00 -_ Liter_Flow ____2.0__ -L/min Oxygen Device 1 __CANNULA - Notified By MM - Notified Whom rn - B 765 -mmHg tO2 ___15.9__ -Vol% Garret test _Positive -
[2016-08-07] MEDS ORDERED: Alum-Mag Hydrox-Simeth 30 mL Suspension PO PRN (06:25)
[2016-08-07] MEDS ORDERED: Ondansetron 2 mg/mL 2 mL Inj IVPUSH PRN (06:25)
--- NOTE | 2016-08-07 09:44 | DRSVH ---
PROCEDURE: CT CHEST WITH CONTRAST ([id number]) INDICATIONS: dyspnea TECHNIQUE: After the administration of intravenous contrast, 5 mm thick sections acquired from the pulmonary api margy to the posterior costophrenic angles. 7 mm thick coronal and sagittal MIP reformats were acquire d. For radiation dose reduction, the following was used: automated exposure control, adjustment of mA and/or kV according to patient size. COMPARISON: [facility], CT, CT ANGIO CHEST PE, 07/08/2016, 11:14. [facility] , CT, CHEST ANGIO-PE, 06/12/2013, 7:15. [facility], CT, CT ABD PELVIS W CON, 07/17/2016, 19:15. [facility], CR, XR CHEST 1VW (PORTABLE), 08/05/2016, 10:25. FINDINGS: Image quality: Excellent. Lungs and pleura: There are bilateral perihilar nodular infiltrates with perilymphatic, peribronchia l distribution and "tree in bud" configuration. No lobar consolidation or pleural effusion. Mild bro nchial wall thickening. No pneumothorax. Central and peripheral airways are patent and normal in ashtyn iber. Mediastinum: There are mildly enlarged mediastinal and bilateral hilar lymph nodes measuring up to 1 .5 cm. Heart size is normal. No pericardial effusion. Thoracic aorta and central pulmonary arteries are normal in size. Esophagus is normal in caliber. No hiatal hernia. Bones and chest wall: No suspicious bony lesions. No vertebral body compression fractures. No axil zen or supraclavicular adenopathy by size criteria. Thyroid gland is normal. Abdomen: Diffuse hepatic fatty infiltration. Visualized upper abdominal solid organs appear normal. Upper abdominal bowel loops are normal in caliber. IMPRESSION: 1. Bilateral perihilar nodular infiltrates with perilymphatic/peribronchial distribution. No lobar co nsolidation or pleural effusions. Differential diagnoses include infectious process such as atypical pneumonia versus inflammatory condition such as sarcoidosis. 2. Mild mediastinal and hilar lymphadenopathy. This finding is nonspecific and may be secondary to i nfectious, inflammatory or neoplastic etiology. Recommend clinical correlation and follow up. 3. Hepatic steatosis. No significant discrepancy with the shift commander radiology preliminary report. Dictated by: Ramsey Madison M.D. on 08/07/2016 at 9:30 Approved by: Ramsey Madison M.D. on 08/07/2016 at 9:42
[2016-08-07] MEDS ORDERED: predniSONE 20 mg Tablet PO SCH (11:55)
[2016-08-07] MEDS ORDERED: Polyethylene Glycol (PEG) 17 Gm Powder PO PRN (11:55)
[2016-08-07] MEDS ORDERED: Albuterol HFA 60 Puff 8 Gm Inhaler INHALATION PRN (12:00)
[2016-08-07] MEDS ORDERED: cefTRIAXone Inj 2,000 MG in Dextrose 5% Minibag Plus 50 ML IV SCH (12:00)
[2016-08-07] MEDS ORDERED: Azithromycin Inj 500 MG in Dextrose 5% w/Vial Mate 250 ML IV SCH (12:00)
[2016-08-07] MEDS ORDERED: Budesonide-Formot 160-4.5 mCg 6.9 Gm Inhaler INHALATION SCH (12:05)
[2016-08-07] MEDS ORDERED: Albuterol 2.5 mg/3 mL Inhalation Solution NEB PRN (12:10)
[2016-08-07] MEDS: oxyCODONE-Acetamin 5-325 mg Tablet PO PRN ×3 (12:14→22:51)
[2016-08-07] MEDS ORDERED: Glucose 40% Oral Gel 15 Gm Tube PO PRN (12:20)
[2016-08-07] MEDS: Albuterol-Ipratropium 3 mL Inhalation Solution NEB SCH ×4 (12:20→23:48)
[2016-08-07] MEDS ORDERED: Insulin GLARgine 100 Unit/mL Syringe SUBQ ONE (12:20)
[2016-08-07 12:23] LABS: BASOPHILS % (AUTO) 0.4 % (0-3); EOSINOPHILS % (AUTO) 0 % (0-5); MONOCYTES % (AUTO) 12.4 % (4-12); Mean Corpuscular Hemoglobin 26.7 pg (27.0-35.0); Mean Corpuscular Volume 82.4 fL (81-100); NEUTROPHILS % (AUTO) 53.1 % (40-74); Platelet Count 152 bil/L (150-400)
[2016-08-07 12:58] LABS: TROPONIN T 0.01 ug/L (0.0-0.011)
[2016-08-07] MEDS: 0.9% Sodium Chloride 1,000 ML IV SCH (13:03)
[2016-08-07 13:09] LABS: Magnesium 2.4 mg/dL (1.6-2.6)
[2016-08-07] MEDS ORDERED: DULO30CA50 PO (14:36)
[2016-08-07] MEDS ORDERED: ALBU2.5V4 INH (14:36)
[2016-08-07] MEDS ORDERED: MOME13HF INH (14:36)
[2016-08-07] MEDS ORDERED: OXYC1TAB24 PO (14:36)
[2016-08-07] MEDS ORDERED: SYMINH INHALATION (14:36)
[2016-08-07] MEDS ORDERED: IPRA0.2S51 INH (14:36)
[2016-08-07] MEDS ORDERED: NORE0.3520 PO (14:36)
[2016-08-07] MEDS ORDERED: MOMETASONE INH SCH (14:45)
[2016-08-07] MEDS ORDERED: FORMOTEROL INH SCH (14:45)
[2016-08-07] MEDS: Insulin LISPRO 300 Unit/3 mL Inj SUBQ SCH ×3 (15:39→22:49)
--- NOTE | 2016-08-07 15:57 | PCM.HPMED ---
Subjective Date of Service Aug 07, 2016 Primary Provider: Admitting Physician: Gene Terry MD Primary Care Physician: Kiran Haney MD Attending Physician: Gene Terry MD Admit Status: From the Emergency Department, Full Admit, Admit to Red Team Chief Complaint: Worsening of dyspnea and wheezing/3 days History of Present Illness: Almaz is a 36-year-old lady with past medical history of asthma/COPD, hypertension, diabetes on insulin, morbid obesity, history of polycystic ovary, history of pancreatitis, current smoker came to emergency room due to worsening of dyspnea and wheezing of 3 days. She came to emergency room due to worsening of dyspnea and wheezing on 08/05/16 and was discharged on a steroid taper. She continued to have worsening of dyspnea and wheezing which prompted ED visit yesterday. She states she is unable to take few steps due to dyspnea. She also has wheezing and chest tightness. Denies fever. She has dry cough. Denies sick contact. She used to have a stable asthma/COPD with only yearly exacerbation but has been recently progressing which required initiation of Symbicort, DuoNeb nebulizer and with frequent exacerbations. Last exacerbation was in June 2016. She continues to smoke 5-6 cigarettes a day. In ED, initial RR 31,HR 109, temp 37.9, BP 132/92, saturating 96% on 2 L. CBC and CMP unremarkable except elevated glucose. Pro-calcitonin 0.06. Chest CT perihilar nodular infiltrate atypical pneumonia versus sarcoidosis. ABG 7.30/51/83 on FIO2 28 % Duoneb nebulizer treatment given, prednisone started Review of Systems: A comprehensive review of systems performed, pertinent positives and negatives included in history of present illness Allergies Coded Allergies: methylprednisolone (Verified Allergy, Severe, Nausea,Vomiting, 08/06/16) hydrocodone bitartrate (Verified Allergy, Unknown, 08/06/16) TAKES PERCOCET AT HOME ibuprofen (Verified Allergy, Unknown, 08/06/16) ketorolac tromethamine (Verified Allergy, Unknown, 08/06/16) propoxyphene napsylate (Verified Allergy, Unknown, 08/06/16) Home Medications Lantus 45 units at bedtime Albuterol 8.5 g hfa 2-4puff every 6 H Symbicort 160/4.5 mcg inh 2 puff twice a day Duloxetine 30 mg by mouth twice a day glimeperide 4 mg by mouth twice a day Ipratropium bromide 0.2 as needed Lisinopril 10 mg by mouth daily Metformin 1 g by mouth twice a day Dulera 200/5 mcg 2 puff bid Norethindrone 0.35 mg po daily Percocet one tablet by mouth every 6 H PMH asthma/COPD, hypertension, diabetes on insulin, morbid obesity, history of polycystic ovary, history of pancreatitis, urrent smoker Surgical History Cholecystectomy Family History Her mother at age 36 due to blood clots. Her sister has asthma. Social History Hx Alcohol Use: No Hx Substance Use: Yes (marijuana occasionally) Hx Tobacco Use: Yes Smoking Status: Current Every Day Smoker Exam Vital Signs Vital Sign - Last Date Time Temp Pulse Resp B/P Pulse Ox O2 Delivery O2 Flow Rate FiO2 08/07/16 14:45 36.8 78 20 141/78 Nasal Cannula 2.00 95 08/07/16 12:24 99 Intake and Output 08/06/16 08/06/16 08/07/16 Cumulative From/Thru 15:00 23:00 07:00 08/06/16 20:33 - 08/07/16 03:00 Intake Total 1000 ml 1000 ml Balance 1000 ml 1000 ml Intake IV Total 1000 ml 1000 ml Exam Gen. patient in moderate respiratory distress HEENT: Head is normocephalic atraumatic, Pupils equal and reactive, extraocular movements intact, Lungs scattered wheezes, Heart regular rate and rhythm without murmurs gallops or rubs Abdomen soft nontender without hepatosplenomegaly Extremities pulses are present dorsalis pedis posterior tibialis and radial. tSkin is warm and dry there are no rashes, Psych alert and oriented to person place and time Neuro cranial nerves II through XII are grossly intact Lymph: There is no lymphadenopathy appreciated in the cervical supra infraclavicular regions : no coats Lab and Diagnostics Result Diagram: 08/07/16 1212 08/07/16 1212 X-Rays, CTs and MRIs Chest CT IMPRESSION: 1. Bilateral perihilar nodular infiltrates with perilymphatic/peribronchial distribution. No lobar consolidation or pleural effusions. Differential diagnoses include infectious process such as atypical pneumonia versus inflammatory condition such as sarcoidosis. 2. Mild mediastinal and hilar lymphadenopathy. This finding is nonspecific and may be secondary to infectious, inflammatory or neoplastic etiology. Recommend clinical correlation and follow up. 3. Hepatic steatosis. No significant discrepancy with the night supervisor radiology preliminary report. Dictated by: Ramsey Madison M.D. on 08/07/2016 at 9:30 Assessment & Plan Almaz is a 36-year-old lady with past medical history of asthma/COPD, hypertension, diabetes on insulin, morbid obesity, history of polycystic ovary, history of pancreatitis, current smoker came to emergency room due to worsening of dyspnea and wheezing of 3 days. #Acute on chronic hypercapnic respiratory failure due to asthma/COPD exacerbation, poa -Failed outpatient treatment with prednisone -Initial ABG 7.30/ on 28% FIO2 -DuoNeb every 4h, Symbicort, prednisone 60 mg by mouth daily -Oxygen via NC, will consider BiPAP if any worsening - Telemetry -Pro calcitonin negative, will off antibiotics -breathing and wheeze improving after admission #Diabetes,poa, chronic - Lantus 45 units at bedtime, sliding scale high correction #Current smoker, active - Counseled #Hypertension, chronic, stable - Continue lisinopril #Obesity, chronic -BMI 58.0 #History of polycystic ovary - On metformin and estrogen Full code Patient admitted under inpatient status with expected length of stay > 2 midnights for severity of present symptoms, complexities of treatment plan and risk for adverse events Time spent 55 minutes copies to: Kiran Haney MD, Melaku MD Aug 07, 2016 15:57
--- NOTE | 2016-08-07 16:54 | NUR ---
Admit Pt arrived on the unit at 0900. She complained of chest pain related to coughing. She was given percocet x2 during this shift for chest pain and reported it was effective. She is on 2L oxygen via nasal cannula. Pt was put on a continuous pulse ox, oxygen sats stable. Blood sugar was elevated, notified. Insulin given per orders. Neb treatments given by RT.
[2016-08-07] MEDS ORDERED: Insulin LISPRO 300 Unit/3 mL Inj SUBQ SCH ×2 (17:30)
[2016-08-07] MEDS: Codeine-guaiFENesin 10 mL Syrup PO PRN (20:54)
[2016-08-07] MEDS: Fluticasone-Salmeterol 500-50 Inhaler INHALATION SCH (20:55)
[2016-08-07] MEDS: DULoxetine 30 mg DR Capsule PO SCH (20:55)
[2016-08-07] MEDS: Insulin GLARgine 100 Unit/mL Syringe SUBQ SCH (22:47)
[2016-08-08] VITALS (12 sets, daily range): BP systolic 115–152; BP diastolic 67–78; PULSE 58–92; RESP 16–20; O2SAT 94–99
[2016-08-08] MEDS: 0.9% Sodium Chloride 1,000 ML IV SCH (00:59)
[2016-08-08] MEDS: Albuterol-Ipratropium 3 mL Inhalation Solution NEB SCH ×5 (03:35→20:30)
[2016-08-08] MEDS: oxyCODONE-Acetamin 5-325 mg Tablet PO PRN ×5 (03:37→20:51)
--- NOTE | 2016-08-08 04:30 | NUR ---
Pain / blood glucose Pain in chest/abdomen related to cough moderately well controlled with 1 Percocet prn; pt requested increase in medication, request passed to Md without new orders entered. Pt requests Xanax with pain medication, educated that it will not be available every time pain med is available. Blood glucose has remained elevated >300; Md notified, Lantus and coverage per eMAR given. Pt ambulating safely independently, showered in evening. Hourly rounding ongoing.
[2016-08-08 04:57] LABS: APPEARANCE,URINE CLEAR (CLEAR,HAZY); COLOR,URINE STRAW (YELLOW); OCCULT BLOOD,URINE NEGATIVE (NEGATIVE); UROBILINOGEN,URINE NORMAL (NORMAL)
[2016-08-08 05:32] LABS: BASOPHILS % (AUTO) 0.5 % (0-3); EOSINOPHILS % (AUTO) 0 % (0-5); MONOCYTES % (AUTO) 15.8 % (4-12); Mean Corpuscular Hemoglobin 26.6 pg (27.0-35.0); Mean Corpuscular Volume 83.6 fL (81-100); NEUTROPHILS % (AUTO) 41.1 % (40-74); Platelet Count 154 bil/L (150-400)
[2016-08-08 05:53] LABS: Phosphorus 3.3 mg/dL (2.5-4.9)
[2016-08-08] MEDS: Pantoprazole 20 mg ER24 Tablet PO SCH (05:57)
[2016-08-08] MEDS ORDERED: HYDROmorphone 1 mg/mL Inj IVPUSH ONE (07:25)
[2016-08-08] MEDS: Fluticasone-Salmeterol 500-50 Inhaler INHALATION SCH ×2 (08:08→20:49)
[2016-08-08] MEDS: DULoxetine 30 mg DR Capsule PO SCH ×2 (08:08→20:50)
[2016-08-08] MEDS: NORETHINDRONE 0.35 MG PO SCH (08:30)
[2016-08-08] MEDS: Insulin LISPRO 300 Unit/3 mL Inj SUBQ SCH ×4 (09:24→22:44)
[2016-08-08] MEDS: predniSONE 20 mg Tablet PO SCH (09:26)
[2016-08-08] MEDS: Codeine-guaiFENesin 10 mL Syrup PO PRN (09:33)
--- NOTE | 2016-08-08 11:55 | NUR ---
Social Work-screening/readiness for discharge: Data:EMR reviewed. Pt is a 36 y/o female who was admitted on 08/07/16 for status asthmaticus. Pt's insurance is [employer] and PCP is Kiran Haney MD. EMR Reviewed. Pt resides at home where she remains independent with ADLs. RN addressed DPOA and information was provided. Pt is currently on O2, which RN is working on weaning. Per RN notes, pt has been up independent in her room. MD anticipates pt may be ready to discharge tomorrow. Pt's friends to provide transport home. No anticipated discharge needs. SW will continue to follow if needs arise. Assessment:Pt who is independent at baseline. Plan:Pt to discharge home when medically stable via POV. No anticipated discharge needs. SW will continue to follow if needs arise. JEROME Mann Addendum: 08/08/16 at 1302 by ELIZA WELLS SW spoke with pt's Health Forensic Photographer through [facility] Orion Casarez [phone] F [phone], update provided. Orion would like to be notified when pt does discharge. SW will continue to follow. JEROME Porras
--- NOTE | 2016-08-08 15:42 | PCM.PNMED ---
Subjective Date of Service Aug 08, 2016 Subjective Breathing improving. Afebrile. human metapneumovirus positive Exam Vital Signs Vital Sign - Last Date Time Temp Pulse Resp B/P Pulse Ox O2 Delivery O2 Flow Rate FiO2 08/08/16 12:31 92 20 Nasal Cannula 2.00 08/08/16 11:12 36.8 152/77 96 08/07/16 14:45 95 Intake and Output 08/07/16 08/07/16 08/08/16 Cumulative From/Thru 15:00 23:00 07:00 08/06/16 20:33 - 08/08/16 05:59 Intake Total 600 ml 2701 ml 4301 ml Output Total 3200 ml 3200 ml Balance 600 ml -499 ml 1101 ml Intake Oral 600 ml 2400 ml 3000 ml IV Total 301 ml 1301 ml Output Urine Total 3200 ml 3200 ml # Voids 3 3 # Bowel Movements 0 0 Exam Gen. patient in moderate respiratory distress but improved HEENT: Head is normocephalic atraumatic, Pupils equal and reactive, extraocular movements intact, Lungs scattered wheezes, Heart regular rate and rhythm without murmurs gallops or rubs Abdomen soft nontender without hepatosplenomegaly Extremities pulses are present dorsalis pedis posterior tibialis and radial. tSkin is warm and dry there are no rashes, Psych alert and oriented to person place and time Neuro cranial nerves II through XII are grossly intact Lymph: There is no lymphadenopathy appreciated in the cervical supra infraclavicular regions : no coats IVs and Medications Medications Reviewed: Medications were reviewed in detail Lab and Diagnostics Result Diagram: 08/08/16 0503 08/08/16 0503 X-Rays, CTs and MRIs Chest CT IMPRESSION: 1. Bilateral perihilar nodular infiltrates with perilymphatic/peribronchial distribution. No lobar consolidation or pleural effusions. Differential diagnoses include infectious process such as atypical pneumonia versus inflammatory condition such as sarcoidosis. 2. Mild mediastinal and hilar lymphadenopathy. This finding is nonspecific and may be secondary to infectious, inflammatory or neoplastic etiology. Recommend clinical correlation and follow up. 3. Hepatic steatosis. No significant discrepancy with the music library assistant radiology preliminary report. Dictated by: Ramsey Madison M.D. on 08/07/2016 at 9:30 Assessment & Plan Almaz is a 36-year-old lady with past medical history of asthma/COPD, hypertension, diabetes on insulin, morbid obesity, history of polycystic ovary, history of pancreatitis, current smoker came to emergency room due to worsening of dyspnea and wheezing of 3 days. #Acute on chronic hypercapnic respiratory failure due to asthma/COPD exacerbation, poa -Precipitated by human metapneumovirus -Failed outpatient treatment with prednisone -Initial ABG 7.30/51/83 on 28% FIO2 -DuoNeb every 4h, Symbicort, prednisone 40 mg by mouth daily -Oxygen via NC, will consider BiPAP if any worsening - Telemetry -Pro calcitonin negative, will hold off antibiotics -breathing and wheeze improving -hMPV positive #Diabetes,poa, chronic - Lantus 45 units at bedtime, sliding scale high correction #Current smoker, active - Counseled #Hypertension, chronic, stable - Continue lisinopril #Obesity, chronic -BMI 58.0 #History of polycystic ovary - On metformin and estrogen Full code Disposition: Possible discharge tomorrow if continues to improve [employer]: Intermittant Pneumatic CD Baldemar Garcia MD Aug 08, 2016 15:42
--- NOTE | 2016-08-08 17:35 | NUR ---
Respiratory- Patient short of breath with exertion. Taking oxygen on and off depending on activity. Room air SPo2 92 % at rest. Patient has a dry, unproductive cough and expiratory wheezes throughout. Requesting pain med for chest wall discomfort.
[2016-08-08] MEDS: Insulin GLARgine 100 Unit/mL Syringe SUBQ SCH (21:06)
[2016-08-09] VITALS (7 sets, daily range): BP systolic 123–132; BP diastolic 73–85; PULSE 62–77; RESP 16–20; O2SAT 91–99
[2016-08-09] MEDS: Albuterol-Ipratropium 3 mL Inhalation Solution NEB SCH ×4 (00:13→13:53)
[2016-08-09] MEDS: oxyCODONE-Acetamin 5-325 mg Tablet PO PRN ×3 (00:41→12:13)
[2016-08-09] MEDS: Pantoprazole 20 mg ER24 Tablet PO SCH (06:26)
[2016-08-09] MEDS: Insulin LISPRO 300 Unit/3 mL Inj SUBQ SCH ×2 (08:00→12:14)
[2016-08-09] MEDS: DULoxetine 30 mg DR Capsule PO SCH (08:23)
[2016-08-09] MEDS: predniSONE 20 mg Tablet PO SCH (08:23)
[2016-08-09] MEDS: NORETHINDRONE 0.35 MG PO SCH (08:24)
[2016-08-09] MEDS: Fluticasone-Salmeterol 500-50 Inhaler INHALATION SCH ×2 (08:24→08:30)
--- NOTE | 2016-08-09 09:26 | PCM.DIMED ---
Discharge Instructions Date of Service Aug 09, 2016 Dates of Hospitalization Aug 07, 2016 at 08:23 Discharge Diagnosis Discharge Diagnosis #Acute on chronic hypercapnic respiratory failure due to asthma/COPD exacerbation, poa -Precipitated by human metapneumovirus #Uncontrolled Diabetes,poa, chronic A1C 11.1 #Current smoker, active #Hypertension, chronic, stable #Obesity, chronic #History of polycystic ovary Diet Heart Healthy, Diabetic Activity Limited until seen by PCP Call your provider Fever or Chills, Shortness of breath, Bleeding, Chest pain, Vomitting, Excessive diarrhea, Weakness (unilateral) Patient Instructions You were hospitalized due to COPD/asthma exacerbation due to human metapneumovirus infection .Please continue prednisone 40mg daily for 2 more days.You also have uncontrolled diabetes with A1c 11.1. Please check your blood glucose 2-3 times a day and follow up with PCP closely for insulin adjustment. Follow-up plan Please follow up with PCP in 1 week. Follow-up Provider: Kiran Haney MD Follow-up with PCP in: 1 week Baldemar Garcia MD Aug 09, 2016 09:26
[2016-08-09] MEDS ORDERED: PRED-508 PO (09:29)
[2016-08-09] MEDS ORDERED: PROM5SYR PO (09:29)
--- NOTE | 2016-08-09 12:56 | PCM.DC.MED ---
Discharge Summary Date of Service Aug 09, 2016 Dates of Hospitalization Date of Hospital Admission Aug 07, 2016 at 08:23 Date of Discharge: Aug 09, 2016 Providers: Admitting Physician: Gene Terry MD Primary Care Physician: Kiran Haney MD Attending Physician: Gene Terry MD Diagnosis at Time of Discharge Diagnosis at Time of Discharge #Acute on chronic hypercapnic respiratory failure due to asthma/COPD exacerbation, poa -Precipitated by human metapneumovirus #Uncontrolled Diabetes,poa, chronic A1C 11.1 #Current smoker, active #Hypertension, chronic, stable #Obesity, chronic #History of polycystic ovary Consultations no call center support consultant was involved on this case Procedures XRay, CTs & MRIs Chest CT IMPRESSION: 1. Bilateral perihilar nodular infiltrates with perilymphatic/peribronchial distribution. No lobar consolidation or pleural effusions. Differential diagnoses include infectious process such as atypical pneumonia versus inflammatory condition such as sarcoidosis. 2. Mild mediastinal and hilar lymphadenopathy. This finding is nonspecific and may be secondary to infectious, inflammatory or neoplastic etiology. Recommend clinical correlation and follow up. 3. Hepatic steatosis. No significant discrepancy with the overnight houseperson radiology preliminary report. Dictated by: Ramsey Madison M.D. on 08/07/2016 at 9:30 Brief History as per HPI performed by dc on 08/07/16 Almaz is a 36-year-old lady with past medical history of asthma/COPD, hypertension, diabetes on insulin, morbid obesity, history of polycystic ovary, history of pancreatitis, current smoker came to emergency room due to worsening of dyspnea and wheezing of 3 days. She came to emergency room due to worsening of dyspnea and wheezing on 08/05/16 and was discharged on a steroid taper. She continued to have worsening of dyspnea and wheezing which prompted ED visit yesterday. She states she is unable to take few steps due to dyspnea. She also has wheezing and chest tightness. Denies fever. She has dry cough. Denies sick contact. She used to have a stable asthma/COPD with only yearly exacerbation but has been recently progressing which required initiation of Symbicort, DuoNeb nebulizer and with frequent exacerbations. Last exacerbation was in June 2016. She continues to smoke 5-6 cigarettes a day. In ED, initial RR 31,HR 109, temp 37.9, BP 132/92, saturating 96% on 2 L. CBC and CMP unremarkable except elevated glucose. Pro-calcitonin 0.06. Chest CT perihilar nodular infiltrate atypical pneumonia versus sarcoidosis. ABG 7. on FIO2 28 % Duoneb nebulizer treatment given, prednisone started Hospital Course Almaz is a 36-year-old lady with past medical history of asthma/COPD, hypertension, diabetes on insulin, morbid obesity, history of polycystic ovary, history of pancreatitis, current smoker came to emergency room due to worsening of dyspnea and wheezing of 3 days. #Acute on chronic hypercapnic respiratory failure due to asthma/COPD exacerbation, poa -Precipitated by human metapneumovirus -Failed outpatient treatment with prednisone -Initial ABG 7. on 28% FIO2 -DuoNeb every 4h, Symbicort, prednisone 40 mg by mouth daily. Continue prednisone for 3 more days. -Oxygen via NC, will consider BiPAP if any worsening -Pro calcitonin negative, will hold off antibiotics -breathing and wheeze improving -hMPV positive #Diabetes , uncontrolled,poa, chronic - Lantus 45 units at bedtime, sliding scale high correction -A1c 11.1. Counseled on better blood glucose control. Diabetic education #Current smoker, active - Counseled #Hypertension, chronic, stable - Continue lisinopril #Obesity, chronic -BMI 58.0 #History of polycystic ovary - On metformin and estrogen #Suspected sarcoidosis, chronic GAEL level elevated at 84 ( NV < 82) , patient on lisinopril. CT scan consistent with bilateral perihilar lymphadenopathy Follow-up outpatient Full code Disposition: Discharged home Condition on discharge stable Exam Vital Signs (Last) Date Time Temp Pulse Resp B/P Pulse Ox O2 Delivery O2 Flow Rate FiO2 08/09/16 10:31 69 08/09/16 08:28 Supplement Oxygen 08/09/16 08:08 18 91 08/09/16 04:58 2.00 08/09/16 04:17 36.6 132/85 08/07/16 14:45 95 Exam Gen. patient in moderate respiratory distress but improved HEENT: Head is normocephalic atraumatic, Pupils equal and reactive, extraocular movements intact, Lungs scattered wheezes, Heart regular rate and rhythm without murmurs gallops or rubs Abdomen soft nontender without hepatosplenomegaly Extremities pulses are present dorsalis pedis posterior tibialis and radial. tSkin is warm and dry there are no rashes, Psych alert and oriented to person place and time Neuro cranial nerves II through XII are grossly intact Lymph: There is no lymphadenopathy appreciated in the cervical supra infraclavicular regions : no coats Test 08/06/16 20:40 08/07/16 12:12 08/08/16 04:00 08/08/16 05:03 Hold Purple Top Tube Received (Received) Hold Sandwich Top Tube Received (Received) Hold Titus Top Tube Received (Received) Erythrocyte Sedimentation Rate 24mm/hr (0-32) Troponin T 0.010ug/L (0.0-0.011) Pro-B-Type Natriuretic Peptide 91.10pg/mL (0-130) Angiotensin Converting Enzyme 84U/L (14-82) Procalcitonin 0.06ng/mL (0.00-0.08) Urine Color Straw (YELLOW) Urine Appearance Clear (CLEAR,HAZY) Urine pH 6.0 (5.0-8.0) Urine Specific [place] 1.005 (1.003-1.035) Urine Protein Negativemg/dL (NEG,TRACE) Urine Glucose (UA) >1000mg/dL (NEGATIVE) Urine Ketones Negativemg/dL (NEGATIVE) Urine Occult Blood Negative (NEGATIVE) Urine Nitrite Negative (NEGATIVE) Urine Bilirubin Negative (NEGATIVE) Urine Urobilinogen Normalmg/dL (NORMAL) Urine Leukocyte Esterase Negative (NEGATIVE) Urine RBC 0-2/hpf (0-2) Urine WBC 0-5/hpf (0-5) Urine Epithelial Cells Few/hpf (NONE-MOD) Urine Crystals None seen (NONE SEEN) Urine Bacteria None/hpf (NONE-FEW) Urine Hyaline Casts None/lpf (NONE) Urine Granular Casts None seen (NONE SEEN) Urine Waxy Casts None seen (NONE SEEN) Urine Red Blood Cell Casts None seen (NONE SEEN) Urine White Blood Cell Casts None seen (NONE SEEN) Urine Mucus None seen (None Seen) Urine Trichomonas None seen (NONE SEEN) Urine Yeast None (NONE SEEN) Urine Culture Reflexed Not indicated White Blood Count 4.1th/mm3 (3.8-10.1) Red Blood Count 4.33mil/mm3 (3.90-5.20) Hemoglobin 11.5g/dL (12.0-15.6) Hematocrit 36.2% (35.0-46.0) Mean Corpuscular Volume 83.6fL (81-100) Mean Corpuscular Hemoglobin 26.6pg (27.0-35.0) Mean Corpuscular Hemoglobin Concent 31.8% (32.0-37.0) Red Cell Distribution Width 13.5% (12.3-15.4) Platelet Count 154bil/L (150-400) Neutrophils (%) (Auto) 41.1% (40-74) Lymphocytes (%) (Auto) 42.4% (14-46) Monocytes (%) (Auto) 15.8% (4-12) Eosinophils (%) (Auto) 0% (0-5) Basophils (%) (Auto) 0.5% (0-3) Sodium Level 138mEq/L (134-144) Potassium Level 4.4mEq/L (3.5-5.2) Chloride Level 101mEq/L (97-108) Carbon Dioxide Level 26mmol/L (18-29) Blood Urea Nitrogen 11mg/dL (6-20) Creatinine 0.80mg/dL (0.57-1.00) Estimat Glomerular Filtration Rate 104mL/min (>59) Glucose Level 240mg/dL (60-99) Hemoglobin A1c 11.1% (4.8-5.6) Calcium Level 8.4mg/dL (8.5-10.1) Phosphorus Level 3.3mg/dL (2.5-4.9) Magnesium Level 2.0mg/dL (1.6-2.6) Total Bilirubin 0.2mg/dL (0.0-1.2) Aspartate Amino Transf (AST/SGOT) 17U/L (0-50) Alanine Aminotransferase (ALT/SGPT) 19U/L (0-32) Alkaline Phosphatase 70U/L (25-150) Total Protein 6.7g/dL (6.4-8.4) Albumin 3.7g/dL (3.4-5.0) Discharge Medications Discharge Medications Budesonide/Formoterol 160-4.5 mcg Inh (Symbicort 160-4.5 mcg Inh) 120 Puff Inhaler 2 PUFF INHALATION BID (Reported) Duloxetine (Duloxetine) 30 Mg Capsule.dr 30 MG PO BID (Reported) Glimepiride (Glimepiride) 4 Mg Tablet 4 MG PO BID (Reported) Lisinopril (Lisinopril) 10 Mg Tablet 10 MG PO QAM (Reported) Metformin (Glucophage) 1,000 Mg Tablet 1,000 MG PO BID (Reported) Mometasone/Formoterol (Dulera 200 Mcg/5 Mcg Inhaler) 13 Gm Hfa.aer.ad 2 PUFFS INH BID (Reported) Norethindrone (Norethindrone) 0.35 Mg Tablet 0.35 MG PO DAILY (Reported) Prednisone (Deltasone) 20 Mg Tablet 40 MG PO DAILY Prescribed by: NYDIA GUERRA MD As needed Albuterol HFA (Proair HFA) 8.5 Gm Hfa.aer.ad 2-4 PUFFS INHALATION Q6H PRN PRN For Shortness of Breath (Reported) Albuterol Neb Soln (Albuterol Neb Soln) 2.5 Mg/3 Ml Vial.neb 2.5 MG INH TID PRN PRN For Shortness of Breath (Reported) Insulin Glargine (Lantus U100 Insulin Vial) 100 Unit/Ml Vial 45 UNIT SUBQ HS PRN PRN blood sugar >140 (Reported) Ipratropium [place] (Ipratropium [place] Inhalant Solution) 0.2 Mg/1 Ml Solution 1 VIAL INH TID PRN PRN For Shortness of Breath (Reported) Promethazine HCl/Codeine (Prometh-Codein 6.25-10 mg/5 ml) 6.25 Mg-10 Mg/5 Ml (5 Ml) Syrup 5 ML PO Q6H PRN PRN For Cough Prescribed by: NYDIA GUERRA MD oxyCODONE-Acetaminophen 5-325 mg (oxyCODONE-Acetaminophen 5-325 mg) 1 Each Tablet 1 TAB PO Q6H PRN PRN For Pain (Reported) Followup Plan Disposition: Home Follow-up plan Please follow up with PCP in 1 week. Discharge Diet: Heart Healthy, Diabetic Discharge Activity: Limited until seen by PCP Patient Instructions You were hospitalized due to COPD/asthma exacerbation due to human metapneumovirus infection .Please continue prednisone 40mg daily for 2 more days.You also have uncontrolled diabetes with A1c 11.1. Please check your blood glucose 2-3 times a day and follow up with PCP closely for insulin adjustment. Follow-up Provider: Kiran Haney MD Follow-up with PCP in: 1 week Time spent 35 minutes coordinating discharge copies to: Kiran Haney MD, Melaku MD Aug 09, 2016 12:56
--- NOTE | 2016-08-09 13:34 | NUR ---
Social Work-discharge: Data:EMR Reviewed. Pt is on day 2 of hospitalization for status asthmaticus per H&P. Pt is medically stable to discharge home today. Pt has been up independent in her room, per RN notes. SW updated by RN that pt is in need of assistance with transport. SW completed Medicaid transport request for 1500, which was confirmed for pickup driver in main lobby. SW updated pt and RN that Medicaid taxi has been arranged. TRA called pt's health home coordinator Or[place] [phone] and informed him of discharge. No other discharge needs. All updated and agreeable to plan. Assessment:Pt who is independent at baseline. Plan:Pt to discharge home today via Medicaid taxi at 1500. Pt's health homes worker aware of discharge. No other discharge needs. All updated and agreeable to plan. JEROME Mann
--- NOTE | 2016-08-09 15:11 | NUR ---
DC Pt leaves via WC to front of building with staff to pickler helper her cab. IV DC'd. A&OX4 on RA. Packet reviewed and all DC instructions understood. New Rxs in hand in packet. Pt understands the need to have these filled. Pt ambulated independently with steady gait. Care DC'd Addendum: 08/09/16 at 1512 by GONZALO URIARTE RN Pt has cab ride to home in [place].
== END 2016-08-09 15:07 | disposition home health service (06) | DRG 133 ==
LOC: SED 20:25 → EDBD 20:25 → EDUNIT# 20:25 → OSC 08-07 08:23 → OBSVTOIN 08-07 08:23
PROVIDERS: ADMIT Hospitalist; ATTEND Internal Medicine
PROC: 4A033R1 Measurement of Arterial Saturation, Peripheral, Percutaneous Approach (ICD-10-PCS; principal; 2016-08-07)
DX: J96.22 Acute and chronic respiratory failure with hypercapnia (principal); J44.1 Chronic obstructive pulmonary disease with (acute) exacerbation; J45.901 Unspecified asthma with (acute) exacerbation; F11.20 Opioid dependence, uncomplicated; E11.65 Type 2 diabetes mellitus with hyperglycemia; I10 Essential (primary) hypertension; Z68.43 Body mass index [BMI] 50.0-59.9, adult; E66.01 Morbid (severe) obesity due to excess calories; F17.210 Nicotine dependence, cigarettes, uncomplicated; G89.29 Other chronic pain; Z79.4 Long term (current) use of insulin; B97.81 Human metapneumovirus as the cause of diseases classified elsewhere; D86.9 Sarcoidosis, unspecified

== ENCOUNTER 2016-08-14 10:14 | Emergency (ER) | payer OTHER ==
[~2016-08-14 10:14] MED LIST changes: +ALBU2.5V4 INH; -AZIT250T4 PO; -BECL8.7A6 IH; -BENZ-12 PO; -BENZ200C44 PO; +DULO30CA50 PO; -GUAI118L13 PO; -GUAI120L57 PO; +IPRA0.2S51 INH; -IPRA3AMP IH; +MOME13HF INH; +NORE0.3520 PO; -OMEP20CA11 PO; -ONDA4TAB9 PO; -OXYC-407 PO; -PRE20 PO; +PROM5SYR PO; +SYMINH INHALATION
[2016-08-14 10:27] VITALS: BP 148/92; PULSE 97; RESP 18; O2SAT 98
--- NOTE | 2016-08-14 10:29 | ED.REPORT ---
HPI-General Illness Date of Service Aug 14, 2016 ED Provider: Zeyad Osborn MD 36 year old morbidly obese female with a history of COPD, asthma, diabetes, and HTN presents to the ER via EMS due to several days of acute on chronic shortness of breath, and worsening chest pain with inspiration. She denies fever , and chills. Patient was released from the hospital here 6 days ago after admission for COPD and viral infection, and states that symptoms have progressively worsened since. At that time she was discharged home with Tessalon pearls, two days of Prednisone, and antibiotics. Nursing Notes Stated Complaint: SHORTNESS OF BREATH Chief Complaint: Respiratory Distress Nursing Notes Reviewed: Yes Allergies: Coded Allergies: methylprednisolone (Verified Allergy, Severe, Nausea,Vomiting, 08/14/16) hydrocodone bitartrate (Verified Allergy, Unknown, 08/14/16) TAKES PERCOCET AT HOME ibuprofen (Verified Allergy, Unknown, 08/14/16) ketorolac tromethamine (Verified Allergy, Unknown, 08/14/16) propoxyphene napsylate (Verified Allergy, Unknown, 08/14/16) Scheduled Budesonide/Formoterol 160-4.5 mcg Inh (Symbicort 160-4.5 mcg Inh) 120 Puff Inhaler 2 PUFF INHALATION BID Duloxetine (Duloxetine) 30 Mg Capsule.dr 30 MG PO BID Glimepiride (Glimepiride) 4 Mg Tablet 4 MG PO BID Lisinopril (Lisinopril) 10 Mg Tablet 10 MG PO QAM Metformin (Glucophage) 1,000 Mg Tablet 1,000 MG PO BID Mometasone/Formoterol (Dulera 200 Mcg/5 Mcg Inhaler) 13 Gm Hfa.aer.ad 2 PUFFS INH BID Norethindrone (Norethindrone) 0.35 Mg Tablet 0.35 MG PO DAILY Prednisone (Deltasone) 20 Mg Tablet 40 MG PO DAILY Prednisone (PredniSONE) 20 Mg Tablet 40 MG PO DAILY Scheduled PRN Albuterol HFA (Proair HFA) 8.5 Gm Hfa.aer.ad 2-4 PUFFS INHALATION Q6H PRN PRN For Shortness of Breath Albuterol Neb Soln (Albuterol Neb Soln) 2.5 Mg/3 Ml Vial.neb 2.5 MG INH TID PRN PRN For Shortness of Breath Insulin Glargine (Lantus U100 Insulin Vial) 100 Unit/Ml Vial 45 UNIT SUBQ HS PRN PRN blood sugar >140 Ipratropium [place] (Ipratropium [place] Inhalant Solution) 0.2 Mg/1 Ml Solution 1 VIAL INH TID PRN PRN For Shortness of Breath Promethazine HCl/Codeine (Prometh-Codein 6.25-10 mg/5 ml) 6.25 Mg-10 Mg/5 Ml (5 Ml) Syrup 5 ML PO Q6H PRN PRN For Cough oxyCODONE-Acetaminophen 5-325 mg (oxyCODONE-Acetaminophen 5-325 mg) 1 Each Tablet 1 TAB PO Q6H PRN PRN For Pain General Time Seen by MD: 10:27 Chief Complaint Other (Shortness of Breath) Hx Obtained From: Patient Arrived By: Ambulance Sudden in Onset?: No Onset Occurred: 6 days ago Symptom Duration: Since onset Associated with: Reports: Chest pain, Cough, Denies: Fever Context Related History: Reports COPD Recent Healthcare: Recent doctor visit, Recent hospitalization Similar Sx Previous: Yes Past Medical History Past Medical History Notes: Hospitalized in June 2016 for COPD exacerbation Patient has had numerous ED visits for abdominal pain and SOB Records indicate [address] scans over the years, all negative. Past Medical History Diverticulitis Chronic back pain Chronic narcotic use Morbid obesity Recurrent bronchitis Pancreatitis Polycystic ovarian syndrome Arthritis Reports: Asthma, COPD, Diabetes mellitus, Hypertension Reports: Obesity Past Surgical History Reports: Cholecystectomy Family History Mother from a blood clot in her leg Smoking History Current Every Day Smoker Social History Alcohol Use: "Social" Drug Use: THC Other Social History: Local resident Ambulatory Status Independent Review of Systems Full Review of Systems Constitutional: Denies: Chills, Fever Respiratory: Reports: Non-productive cough, Pleuritic pain, Shortness of breath , Wheezing Cardiovascular: Reports: Chest pain, Denies: Palpitations GI: Denies: Abdominal pain, Diarrhea, Nausea, Vomiting Complete sys rev & neg: except as marked. Physical Exam Vital Signs Vital Signs Date Time Temp Pulse Resp B/P Pulse Ox O2 Delivery O2 Flow Rate FiO2 08/14/16 12:22 95 Room Air 08/14/16 11:44 90 17 99 Room Air 08/14/16 10:27 36.5 97 18 148/92 98 Room Air Initial VS: Reviewed Head / Eyes: Atraumatic, Normocephalic Abdomen / GI: Soft, Non-tender, No guarding, No rebound, No distention Extremities: Vascular intact, Neuro intact, No swelling, No tenderness Skin: Warm, Dry, No cyanosis Neurologic: Alert, Oriented, Nonfocal General/Constitutional: Awake, Alert, Well developed, Well nourished Appearance / Presentation: Positive: Obese, morbidly Neck: Supple, No meningismus, Full range of motion, No swelling, Non-tender, No masses Wheezing / Retractions: Positive: Prolonged exp phase, Wheezing moderate Coarse breath sounds. Tenderness along anterior and lateral chest wall bilaterally. Cardiovascular: Heart rate NL, Regular rhythm, Heart sounds NL, Cap refill not delayed, Peripheral circulation NL Interpretation & Diagnostics X-Ray Chest Interpretation Chest Xray Interpretation: IMPRESSION: 1. No acute cardiopulmonary disease. Dictated by: Robert Guadarrama M.D. on 08/14/2016 at 12:06 Approved by: Robert Guadarrama M.D. on 08/14/2016 at 12:06 View: AP & lat Interpretation / Wet Read by: Interpret - Radiologist Re-Eval/Medical Decision Med Decision/Clinical Course 36 year old morbidly obese female with a history of COPD, asthma, diabetes, and HTN presents to the ER via EMS due to several days of acute on chronic shortness of breath, and worsening chest pain with inspiration. She denies fever , and chills. Patient was released from the hospital here 6 days ago after admission for COPD and viral infection, and states that symptoms have progressively worsened since. At that time she was discharged home with Tessalon pearls, two days of Prednisone, and antibiotics. Upon arrival the patient is in mild respiratory distress though with good oxygen saturation on room air and is hemodynamically stable/afebrile. CXR: Obtained, reviewed and interpreted by myself shows no evidence of acute infiltrates, effusions or pneumothorax. Cardiac and mediastinal silhouette normal. No bony or soft tissue abnormalities. She was treated with the below medications: 40mg oral prednisone DuoNeb x2 Thereafter, the patient was ambulated on pulse oximetry and maintained oxygen saturation in the high 90s on room air without significant dyspnea. At this time, there is no evidence of pulmonary edema or pneumonia. Findings not suggestive of acute coronary syndrome or pulmonary embolism. Overall presentation consistent with exacerbation of COPD in the setting of titrating off prednisone. She has been prescribed an additional 5 days of prednisone and advised to use her albuterol inhaler with spacer every 2-4 hours for the next 48 hours. Follow-up and return precautions were given detailed she was discharged in good condition. Source of Hx: Old records Time of Eval: 12:10 Re-Evaluation/Progress Note: Patient's breathing is improved. Time of Eval: 12:39 Re-Evaluation/Progress Note: Patient passed road test. Discussed lab and radiology results and plan to discharge. Patient is amenable to the plan. Return precautions given. All other questions addressed. Counseled Regarding: Diagnosis, Lab results, Need for follow-up, When/why to return to ED Discharge & Departure Primary Impression: COPD exacerbation Additional Impressions: Respiratory distress Wheezing Disposition: Home Discharge Condition All VS Reviewed: Yes Condition: Stable Patient Instructions: Chronic Obstructive Pulmonary Disease (ED) Additional Instructions: Thank you for seeking care at emergency room. It is difficult for us to make definitive diagnoses in the ED but we believe that you are experiencing exacerbation of your COPD. Our primary goal today in the ED was to evaluate you for any life-threatening conditions. Your evaluation was reassuring. You will be discharged with a prescription for Prednisone. Please take as directed. Use your albuterol inhaler every 2-4 hours with with spacer, for the next 24 hours. You should follow-up with your primary doctor this week. You should return to the ED immediately if you develop worsening shortness of breath, chest pain, fever, pain or swelling of your legs, or any other concerning signs or symptoms. Thank you for letting us partake in your care today. Referrals: Kiran Haney MD (PCP) [place] Attestation Portions of this note were transcribed by Christopher Hendrix. I, Dr. Osborn, personally performed the history, physical exam and medical decision-making; I reviewed and confirmed the accuracy of the information in the transcribed note. Signed by: Kiley Can, 08/14/2016 and 12:40 copies to: Kiran Haney MD, Beck O MD Aug 14, 2016 10:29 CHRISTOPHER HENDRIX Aug 14, 2016 10:53
[2016-08-14] MEDS ORDERED: predniSONE 20 mg Tablet PO ONE (10:50)
[2016-08-14] MEDS ORDERED: Albuterol-Ipratropium 3 mL Inhalation Solution NEB ONE (10:50)
[2016-08-14] MEDS ORDERED: Albuterol-Ipratropium 3 mL Inhalation Solution NEB SCH (10:50)
[2016-08-14 11:44] VITALS: PULSE 90; RESP 17; O2SAT 99
--- NOTE | 2016-08-14 12:08 | DRSVH ---
PROCEDURE: X-RAY CHEST, TWO VIEWS ([id number]) INDICATIONS: SHORTNESS OF BREATH TECHNIQUE: 2 views of the chest were acquired. COMPARISON: [facility], CR, XR CHEST 1VW (PORTABLE), 08/05/2016, 10:25. FINDINGS: Surgical changes and devices: None. Lungs and pleura: No pleural effusions or pneumothorax. Lungs are clear. Mediastinum: Mediastinal contours are normal. Heart size is normal. Bones and chest wall: No suspicious bony abnormalities. Soft tissues appear unremarkable. IMPRESSION: 1. No acute cardiopulmonary disease. Dictated by: Robert Guadarrama M.D. on 08/14/2016 at 12:06 Approved by: Robert Guadarrama M.D. on 08/14/2016 at 12:06
[2016-08-14] MEDS ORDERED: PRE20 PO (12:11)
[2016-08-14 12:22] VITALS: O2SAT 95
[2016-08-14] MEDS ORDERED: LORazepam 0.5 mg Tablet PO ONE (12:45)
== END 2016-08-14 12:52 | disposition home or self-care (01) ==
LOC: SED 10:14
DX: J44.1 Chronic obstructive pulmonary disease with (acute) exacerbation (principal); E11.9 Type 2 diabetes mellitus without complications; I10 Essential (primary) hypertension; F17.200 Nicotine dependence, unspecified, uncomplicated; Z90.49 Acquired absence of other specified parts of digestive tract; Z79.84 Long term (current) use of oral hypoglycemic drugs; Z88.5 Allergy status to narcotic agent; Z88.6 Allergy status to analgesic agent; Z88.8 Allergy status to other drugs, medicaments and biological substances
CPT/HCPCS: 71020; 94664; 94799; 99284; J7620

== ENCOUNTER 2016-10-27 08:59 | Emergency (ER) | payer OTHER ==
[~2016-10-27] VITALS: Ht 166.4 cm; Wt 160.4 kg
[~2016-10-27 08:59] MED LIST changes: +PRE20 PO
[2016-10-27 09:01] VITALS: BP 156/99; PULSE 89; RESP 12; O2SAT 98
--- NOTE | 2016-10-27 09:52 | ED.REPORT ---
HPI-Extremity Problem Lower Date of Service October 27, 2016 ED Provider: Patricia Calero MD 36 year old morbidly obese female with chronic back pain with chronic narcotic use, diabetes, and HTN presents to the ED with exacerbated right hip pain onset 2 days ago upon awakening from a nap on her couch. She states that the pain radiates anteriorly into her groin and anterior lateral thigh. Patient denies fever, incontinence, focal weakness, numbness/tingling of the extremities, history of spinal surgeries, and IV drug use. Patient has tried Tylenol at home for pain but without relief. She states she is allergic to NSAIDs. Nursing Notes Stated Complaint: RIGHT HIP PAIN Chief Complaint: Extremity Trauma Allergies: Coded Allergies: methylprednisolone (Verified Allergy, Severe, Nausea,Vomiting, 08/14/16) hydrocodone bitartrate (Verified Allergy, Unknown, 08/14/16) TAKES PERCOCET AT HOME ibuprofen (Verified Allergy, Unknown, 08/14/16) ketorolac tromethamine (Verified Allergy, Unknown, 08/14/16) propoxyphene napsylate (Verified Allergy, Unknown, 08/14/16) Scheduled Budesonide/Formoterol 160-4.5 mcg Inh (Symbicort 160-4.5 mcg Inh) 120 Puff Inhaler 2 PUFF INHALATION BID Duloxetine (Duloxetine) 30 Mg Capsule.dr 30 MG PO BID Glimepiride (Glimepiride) 4 Mg Tablet 4 MG PO BID Lisinopril (Lisinopril) 10 Mg Tablet 10 MG PO QAM Metformin (Glucophage) 1,000 Mg Tablet 1,000 MG PO BID Mometasone/Formoterol (Dulera 200 Mcg/5 Mcg Inhaler) 13 Gm Hfa.aer.ad 2 PUFFS INH BID Norethindrone (Norethindrone) 0.35 Mg Tablet 0.35 MG PO DAILY Prednisone (Deltasone) 20 Mg Tablet 40 MG PO DAILY Prednisone (PredniSONE) 20 Mg Tablet 40 MG PO DAILY Prednisone (PredniSONE) 20 Mg Tablet 40 MG PO DAILY Scheduled PRN Albuterol HFA (Proair HFA) 8.5 Gm Hfa.aer.ad 2-4 PUFFS INHALATION Q6H PRN PRN For Shortness of Breath Albuterol Neb Soln (Albuterol Neb Soln) 2.5 Mg/3 Ml Vial.neb 2.5 MG INH TID PRN PRN For Shortness of Breath Insulin Glargine (Lantus U100 Insulin Vial) 100 Unit/Ml Vial 45 UNIT SUBQ HS PRN PRN blood sugar >140 Ipratropium [place] (Ipratropium [place] Inhalant Solution) 0.2 Mg/1 Ml Solution 1 VIAL INH TID PRN PRN For Shortness of Breath Promethazine HCl/Codeine (Prometh-Codein 6.25-10 mg/5 ml) 6.25 Mg-10 Mg/5 Ml (5 Ml) Syrup 5 ML PO Q6H PRN PRN For Cough oxyCODONE-Acetaminophen 5-325 mg (oxyCODONE-Acetaminophen 5-325 mg) 1 Each Tablet 1 TAB PO Q6H PRN PRN For Pain General Time Seen by MD: 09:09 Chief Complaint Other Right hip pain Hx Obtained From: Patient Arrived By: Walk-in Onset Occurred: 2 days ago Symptom Duration: Since onset Caused by: Body motion Location: : Hip right Quality: Aching, Sharp Severity: Current: Moderate Pertinent Negative: Pt denies other symptoms Exacerbated by: Range of motion, Abducting, Extension, Flexion, Movement Past Medical History Past Medical History Notes: Hospitalized in June 2016 for COPD exacerbation Patient has had numerous ED visits for abdominal pain and SOB Records indicate [address] scans over the years, all negative. Past Medical History Diverticulitis Chronic back pain Chronic narcotic use Morbid obesity Recurrent bronchitis Pancreatitis Polycystic ovarian syndrome Arthritis Reports: Asthma, COPD, Diabetes mellitus, Hypertension Reports: Obesity Past Surgical History Reports: Cholecystectomy Family History Mother from a blood clot in her leg Smoking History Current Every Day Smoker Social History Alcohol Use: "Social" Drug Use: THC Other Social History: Local resident Ambulatory Status Independent Review of Systems A comprehensive review of systems has been conducted with the patient and found to be negative except what is mentioned in the history of present illness. Physical Exam Initial Vital Signs Vital Signs (First) Date Time Temp Pulse Resp B/P Pulse Ox O2 Delivery O2 Flow Rate FiO2 10/27/16 09:01 36.6 89 12 156/99 98 Room Air General/Constitutional: Well-developed, Well-nourished (morbidly obese) Head / Eyes: Atraumatic, Normocephalic ENT: Mucous membranes moist, Conjunctiva normal Neck: Supple, Non-tender, Full range of motion Cardiovascular: Regular rate & rhythm Abdomen / GI: Soft, Non-tender Upper Extremities: Vascular intact, Neuro intact, No swelling, No tenderness Lower Ext Brief Normals: Hip L exam normal Right Hip: Positive: ROM reduced... (Flexion), Tenderness present... (Moderate) General/Constitutional: Awake, Alert, No acute distress, Cooperative Wheezing / Retractions: Positive: Wheezing expiratory (throughout anterior and posterior bilateral lung rizzo) Skin: No rash, Warm (well perfused), Dry, No swelling Re-Eval/Medical Decision Med Decision/Clinical Course In summary, the patient is a 36-year-old female with a history of morbid obesity who presents with right hip pain. Our assessment reveals an awake, alert patient in no acute distress. Hemodynamically stable and afebrile. Exam reveals normal neurologic exam of the lower extremities. There are no concerning signs or symptoms suggestive of cauda equina, cord compression, epidural abscess or other neurologic emergency. Also, history is not suggestive of referred intraabdominal pathology or vascular emergency. There are no symptoms suggestive of urinary tract infection, pyelonephritis or renal colic. There is no history of significant trauma, fever, unexplained weight loss, cancer history, long-term steroid use or IV drug use. Taking into consideration patient's immunocompetency, absence of fever, patient' s history and exam, we suspect trochanteric bursitis and/or muscle strain or spasm. We do not feel imaging is warranted at this time. Given the patient's workup, we feel it is safe to discharge her home with conservative management. The patient has been given a prescription for Prednisone, 40 mg x 3 days here in the ER. She has been advised to follow up with her PCP, Dr. Haney, stretch, apply ice packs and continue taking her regular medications as prescribed. We have discussed with the patient results of workup, indications for return including: motor weakness in the lower extremities and/or bowel or bladder incontinence. Also emphasized the need for PCP follow up with Dr. Haney. Patient understands and agrees with the plan. Discharge & Departure Impression: Primary Impression: Radicular low back pain Additional Impressions: Hip pain, right Chronic back pain Disposition: Home Discharge Condition Condition: Stable Additional Instructions: Thank you for seeking care at emergency room today. It is difficult for us to make definitive diagnoses in the ED but we believe that you are experiencing hip pain radiating from your chronic back problem. Our primary goal today in the ED was to evaluate you for any life-threatening conditions. Your evaluation was reassuring. You should follow-up with your primary doctor in the next week. Please take Prednisone, 40 mg daily for the next three days. It will help to calm down inflammation. You can also take Tylenol as needed. Please increase your daily Lantus to 50 units at bedtime for the next 4 nights as being on Prednisone will increase your blood sugar. Also you can apply ice packs, stretch and continue taking your regularly prescribed medications. You should return to the ED immediately if you develop worsening pain, incontinence, numbness, tingling, weakness, fevers, vomiting, cough, shortness of breath, chest pain, lightheadedness, weakness or any other concerning signs or symptoms. Thank you for letting us partake in your care today. Referrals: Kiran Haney MD (PCP) EDSupervising Provider for APC: Patricia Calero MD Attending Statement Seen and examined with Dr. Pisano. Presents with 2 days of right-sided likely L2-3 radicular back pain. No skin lesions or trochanteric bursitis no trauma. Multiple allergies to nonsteroidals. Offered steroids to help with inflammatory pain Tylenol referral back to her primary care physician. The issue of narcotics was not brought. Patient did not ask nor were they offered. Agree with assessment and plan as above copies to: Kiran Haney MD, Oksana S DO October 27, 2016 09:52 Patricia Calero MD October 27, 2016 10:46
[2016-10-27] MEDS ORDERED: PRE20 PO (10:33)
== END 2016-10-27 11:04 | disposition home or self-care (01) ==
LOC: SED 08:59
DX: M54.16 Radiculopathy, lumbar region (principal); M25.551 Pain in right hip; G89.29 Other chronic pain; E11.9 Type 2 diabetes mellitus without complications; I10 Essential (primary) hypertension; J45.909 Unspecified asthma, uncomplicated; J44.9 Chronic obstructive pulmonary disease, unspecified; F17.200 Nicotine dependence, unspecified, uncomplicated; Z88.8 Allergy status to other drugs, medicaments and biological substances; Z88.5 Allergy status to narcotic agent; Z88.6 Allergy status to analgesic agent; Z79.84 Long term (current) use of oral hypoglycemic drugs; Z79.4 Long term (current) use of insulin

== ENCOUNTER 2016-11-21 10:01 | Emergency (ER) | payer OTHER ==
[~2016-11-21] VITALS: Ht 165.1 cm; Wt 158.2 kg
[2016-11-21 10:12] VITALS: BP 142/82; PULSE 120; RESP 36; O2SAT 94
--- NOTE | 2016-11-21 10:13 | ED.REPORT ---
HPI-Dyspnea / Wheezing Date of Service November 21, 2016 ED Provider: The patient is a 36 year old female with history of COPD, asthma, hypertension, diabetes mellitus, and chronic pain, who presents to the emergency department complaining of shortness of breath that has been worsening over the last 3 days. She has also experienced right-sided pain, wheezing, diaphoresis, and nausea. She denies chest pain, measured fever, vomiting, diarrhea or abdominal pain. She has had similar symptoms in the past but is unsure if it was related to asthma, COPD, or pneumonia. She smokes tobacco regularly. Nursing Notes Stated Complaint: SHORTNESS OF BREATH Chief Complaint: Respiratory Distress Nursing Notes Reviewed: Yes Allergies: Coded Allergies: methylprednisolone (Verified Allergy, Severe, Nausea,Vomiting, 11/21/16) hydrocodone bitartrate (Verified Allergy, Unknown, 11/21/16) TAKES PERCOCET AT HOME ibuprofen (Verified Allergy, Unknown, 11/21/16) ketorolac tromethamine (Verified Allergy, Unknown, 11/21/16) propoxyphene napsylate (Verified Allergy, Unknown, 08/14/16) Scheduled Budesonide/Formoterol 160-4.5 mcg Inh (Symbicort 160-4.5 mcg Inh) 120 Puff Inhaler 2 PUFF INHALATION BID Duloxetine (Duloxetine) 30 Mg Capsule.dr 30 MG PO BID Glimepiride (Glimepiride) 4 Mg Tablet 4 MG PO BID Lisinopril (Lisinopril) 10 Mg Tablet 10 MG PO QAM Metformin (Glucophage) 1,000 Mg Tablet 1,000 MG PO BID Mometasone/Formoterol (Dulera 200 Mcg/5 Mcg Inhaler) 13 Gm Hfa.aer.ad 2 PUFFS INH BID Norethindrone (Norethindrone) 0.35 Mg Tablet 0.35 MG PO DAILY Prednisone (Deltasone) 20 Mg Tablet 40 MG PO DAILY Prednisone (PredniSONE) 20 Mg Tablet 40 MG PO DAILY Prednisone (PredniSONE) 20 Mg Tablet 40 MG PO DAILY Scheduled PRN Albuterol HFA (Proair HFA) 8.5 Gm Hfa.aer.ad 2-4 PUFFS INHALATION Q6H PRN PRN For Shortness of Breath Albuterol Neb Soln (Albuterol Neb Soln) 2.5 Mg/3 Ml Vial.neb 2.5 MG INH TID PRN PRN For Shortness of Breath Insulin Glargine (Lantus U100 Insulin Vial) 100 Unit/Ml Vial 45 UNIT SUBQ HS PRN PRN blood sugar >140 Ipratropium [place] (Ipratropium [place] Inhalant Solution) 0.2 Mg/1 Ml Solution 1 VIAL INH TID PRN PRN For Shortness of Breath Promethazine HCl/Codeine (Prometh-Codein 6.25-10 mg/5 ml) 6.25 Mg-10 Mg/5 Ml (5 Ml) Syrup 5 ML PO Q6H PRN PRN For Cough oxyCODONE-Acetaminophen 5-325 mg (oxyCODONE-Acetaminophen 5-325 mg) 1 Each Tablet 1 TAB PO Q6H PRN PRN For Pain General Time Seen by MD: 10:13 Chief Complaint Shortness of breath Hx Obtained From: Patient Arrived By: Walk-in Sudden in Onset?: Yes Onset Occurred: 3 days ago Symptom Duration: Since onset Quality: Painful Severity: Current: Moderate Severity: Maximum: Moderate Recent Healthcare: No recent hospitalization Similar Sx Previous: Yes Past Medical History Past Medical History Notes: Hospitalized in June 2016 for COPD exacerbation Patient has had numerous ED visits for abdominal pain and SOB Records indicate [address] scans over the years, all negative. Past Medical History Diverticulitis Chronic back pain Chronic narcotic use Morbid obesity Recurrent bronchitis Pancreatitis Polycystic ovarian syndrome Arthritis Reports: Asthma, COPD, Diabetes mellitus, Hypertension Reports: Obesity Past Surgical History Reports: Cholecystectomy Family History Mother from a blood clot in her leg Smoking History Current Every Day Smoker Social History Alcohol Use: "Social" Drug Use: THC Other Social History: Local resident Ambulatory Status Independent Review of Systems Review of Systems Note: +right-sided pain Respiratory: Reports: Shortness of breath, Wheezing Cardiovascular: Denies: Chest pain Skin: Reports Diaphoresis Complete sys rev & neg: except as marked. GI: Reports: Nausea, Denies: Abdominal pain, Diarrhea, Vomiting Physical Exam Initial Vital Signs Vital Signs (First) Date Time Temp Pulse Resp B/P Pulse Ox O2 Delivery O2 Flow Rate FiO2 11/21/16 10:12 37.6 120 36 142/82 94 Room Air Initial VS: Reviewed Head / Eyes: Atraumatic, Normocephalic, PERRL ENT: Mucous membranes moist, Conjunctiva normal, No scleral icterus Abdomen / GI: Soft, Non-tender, No guarding, No rebound, No distention Lymphatic: No lymphadenopathy Extremities: Vascular intact, Neuro intact, No swelling, No tenderness Skin: Warm, Dry, No cyanosis Neurologic: Alert, Oriented, Nonfocal Psychiatric: Mood/affect normal, Behavior normal, Normal thought content General/Constitutional: Awake, Alert Neck: Atraumatic, Supple, No meningismus, Full range of motion, No swelling, Non-tender, No masses Respiratory / Chest: Breath sounds = bilat, No respiratory distress Wheezing / Retractions: Positive: Prolonged exp phase, Wheezing expiratory ( diffuse), Negative: Wheezing inspiratory Cardiovascular: Heart rate NL, Regular rhythm, Heart sounds NL, No murmurs, No rubs, Peripheral circulation NL Re-Eval/Medical Decision Source of Hx: Old records Re-Evaluation/Progress #1: Time of Eval: 11:40 Re-Evaluation/Progress Note: Rechecked the patient. On repeat exam she is still wheezing but it is better compared to initial exam. The patient still feels short of breath. At home she has a DuoNeb. The patient does mention that she ran out of her Percocet a few days ago and does not get a prescription for a few days. She normally take 5 mg Percocet 4 times daily. Discussed plan for cough medicine and re-evaluation. Re-Evaluation/Progress #2: Time of Eval: 12:43 Re-Evaluation/Progress Note: Rechecked the patient. She is feeling much better. Discussed plan to speak with her PCP then discharge. Consultation : Referral / Consult Name: Kiran Haney MD Consulted With: Primary care physician Call Returned at: 12:58 Pulp Tester: Will see in office, Agrees with eval, Agrees with plan Note: He would not like me to refill her pain medication prescription. She will need to see him in his office. Counseled Regarding: Diagnosis, Lab results, Need for follow-up, When/why to return to ED Discharge & Departure Impression: Primary Impression: Acute asthma exacerbation Asthma severity: unspecified severity Qualified Code: J45.901 - Unspecified asthma with (acute) exacerbation Disposition: Home Discharge Condition All VS Reviewed: Yes Condition: Stable Patient Instructions: Asthma (ED) Additional Instructions: Thank you for entrusting us with your care today. Take the Prednisone 60 mg for 5 days as prescribed. Continue to use the DuoNeb as needed for your breathing. Followup with Dr. Haney to further manage your chronic pain. He specifically requested that I not refill your pain medication. Return to the emergency department for any new or concerning symptoms. Referrals: Kiran Haney MD (PCP) Scribe Attestation Portions of this note were transcribed by Ciara Real. I, Dr. Desouza personally performed the history, physical exam and medical decision-making; I reviewed and confirmed the accuracy of the information in the transcribed note. Signed by: Kiley White, 11/21/2016 at 1305. copies to: Kiran Haney MD, Kirk H MD November 21, 2016 10:13 Ciara Real November 21, 2016 10:18
[2016-11-21] MEDS ORDERED: Albuterol 2.5 mg/3 mL Inhalation Solution NEB ONE (10:20)
[2016-11-21] MEDS ORDERED: predniSONE 20 mg Tablet PO ONE (10:20)
[2016-11-21] MEDS ORDERED: Ipratropium 0.02% 0.5 mg/2.5 mL Inhalation Solution NEB ONE (10:20)
[2016-11-21 10:36] VITALS: PULSE 106; RESP 18; O2SAT 96
[2016-11-21] MEDS ORDERED: HYDROcodone-APAP 7.5-325 mg/15 mL 15 mL Solution PO ONE (11:15)
[2016-11-21] MEDS ORDERED: oxyCODONE-Acetamin 5-325 mg Tablet PO ONE (11:50)
[2016-11-21] MEDS ORDERED: PRE20 PO (13:05)
[2016-11-21 13:10] VITALS: BP 113/51; PULSE 92; RESP 24; O2SAT 97
== END 2016-11-21 13:11 | disposition home or self-care (01) ==
LOC: SED 10:01
DX: J45.901 Unspecified asthma with (acute) exacerbation (principal); I10 Essential (primary) hypertension; J45.909 Unspecified asthma, uncomplicated; J44.9 Chronic obstructive pulmonary disease, unspecified; E11.9 Type 2 diabetes mellitus without complications; F17.200 Nicotine dependence, unspecified, uncomplicated; Z79.4 Long term (current) use of insulin; Z79.84 Long term (current) use of oral hypoglycemic drugs; Z88.5 Allergy status to narcotic agent; Z88.6 Allergy status to analgesic agent; Z88.8 Allergy status to other drugs, medicaments and biological substances
CPT/HCPCS: 94644; 99284; J7613

== ENCOUNTER 2016-12-22 16:46 | Emergency (ER) | payer OTHER ==
[~2016-12-22] VITALS: Ht 165.1 cm; Wt 155.9 kg
[2016-12-22 16:58] VITALS: BP 159/113; RESP 16; O2SAT 98
--- NOTE | 2016-12-22 17:05 | ED.REPORT ---
HPI-Dental/Mouth Prob Date of Service Dec 22, 2016 ED Provider: Zeyad Osborn MD Patient is a 36 year old female with a history of insulin dependent diabetes and hypertension who presents to the ED complaining of mouth pain. Associated symptoms include trouble sleeping due to the pain. She denies fever or chills. The patient was seen yesterday at the dentist and diagnosed with an abscess after having her tooth pulled 3 days ago. She was started on Augmentin yesterday but reports that the pain is worsening. Nursing Notes Stated Complaint: MOUTH ABSCESS Chief Complaint: ENT & Mouth Nursing Notes Reviewed: Yes Allergies: Coded Allergies: methylprednisolone (Verified Allergy, Severe, Nausea,Vomiting, 11/21/16) hydrocodone bitartrate (Verified Allergy, Unknown, 11/21/16) TAKES PERCOCET AT HOME ibuprofen (Verified Allergy, Unknown, 11/21/16) ketorolac tromethamine (Verified Allergy, Unknown, 11/21/16) propoxyphene napsylate (Verified Allergy, Unknown, 08/14/16) Scheduled Budesonide/Formoterol 160-4.5 mcg Inh (Symbicort 160-4.5 mcg Inh) 120 Puff Inhaler 2 PUFF INHALATION BID Duloxetine (Duloxetine) 30 Mg Capsule.dr 30 MG PO BID Glimepiride (Glimepiride) 4 Mg Tablet 4 MG PO BID Lisinopril (Lisinopril) 10 Mg Tablet 10 MG PO QAM Metformin (Glucophage) 1,000 Mg Tablet 1,000 MG PO BID Mometasone/Formoterol (Dulera 200 Mcg/5 Mcg Inhaler) 13 Gm Hfa.aer.ad 2 PUFFS INH BID Norethindrone (Norethindrone) 0.35 Mg Tablet 0.35 MG PO DAILY Prednisone (Deltasone) 20 Mg Tablet 40 MG PO DAILY Prednisone (PredniSONE) 20 Mg Tablet 40 MG PO DAILY Prednisone (PredniSONE) 20 Mg Tablet 40 MG PO DAILY Prednisone (PredniSONE) 20 Mg Tablet 60 MG PO DAILY Scheduled PRN Albuterol HFA (Proair HFA) 8.5 Gm Hfa.aer.ad 2-4 PUFFS INHALATION Q6H PRN PRN For Shortness of Breath Albuterol Neb Soln (Albuterol Neb Soln) 2.5 Mg/3 Ml Vial.neb 2.5 MG INH TID PRN PRN For Shortness of Breath Insulin Glargine (Lantus U100 Insulin Vial) 100 Unit/Ml Vial 45 UNIT SUBQ HS PRN PRN blood sugar >140 Ipratropium [place] (Ipratropium [place] Inhalant Solution) 0.2 Mg/1 Ml Solution 1 VIAL INH TID PRN PRN For Shortness of Breath Promethazine HCl/Codeine (Prometh-Codein 6.25-10 mg/5 ml) 6.25 Mg-10 Mg/5 Ml (5 Ml) Syrup 5 ML PO Q6H PRN PRN For Cough oxyCODONE-Acetaminophen 5-325 mg (oxyCODONE-Acetaminophen 5-325 mg) 1 Each Tablet 1 TAB PO Q6H PRN PRN For Pain oxyCODONE-Acetaminophen 5-325 mg (oxyCODONE-Acetaminophen 5-325 mg) 1 Each Tablet 1 TAB PO Q4H PRN PRN For Pain General Time Seen by MD: 17:02 Chief Complaint Mouth pain Hx Obtained From: Patient Arrived By: Walk-in Onset Occurred: Yesterday Symptom Duration: Since onset Location: : Tooth upper L molar Quality: Painful Severity: Current: Severe Recent Healthcare: Recent doctor visit, Recent hospitalization Similar Sx Previous: No Past Medical History Past Medical History Notes: Hospitalized in June 2016 for COPD exacerbation Patient has had numerous ED visits for abdominal pain and SOB Records indicate [address] scans over the years, all negative. Past Medical History Diverticulitis Chronic back pain Chronic narcotic use Morbid obesity Recurrent bronchitis Pancreatitis Polycystic ovarian syndrome Arthritis Reports: Asthma, COPD, Diabetes mellitus, Hypertension Reports: Obesity Past Surgical History Reports: Cholecystectomy Family History Mother from a blood clot in her leg Smoking History Current Every Day Smoker Social History Alcohol Use: "Social" Drug Use: THC Other Social History: Local resident Ambulatory Status Independent Review of Systems Constitutional: Denies: Chills, Fever Ears / Nose / Throat: Reports: Mouth pain, Toothache Respiratory: Denies: Non-productive cough, Shortness of breath Complete sys rev & neg: except as marked. Psychiatric: Reports: Insomnia Physical Exam Initial Vital Signs Vital Signs (First) Date Time Temp Pulse Resp B/P Pulse Ox O2 Delivery O2 Flow Rate FiO2 12/22/16 16:58 37.5 93 16 159/113 98 Room Air Initial VS: Reviewed ENT: Airway patent, Mucous membranes moist significant caries about tooth 19, surrounding erythema tooh 20 is absent no fluctuance no submental swelling no drainable abscess Neck: Atraumatic, Supple, Full range of motion, No swelling General/Constitutional: Awake, Alert Appearance / Presentation: Positive: Obese Head / Eyes: Atraumatic, Normocephalic, PERRL, EOMI Respiratory / Chest: Atraumatic, No respiratory distress Neurologic: Oriented X3, Speech NL, No motor deficits, No sensory deficits Skin: Atraumatic, Color NL, No rash, Warm, Dry Psychiatric: Affect NL, Mood NL Re-Eval/Medical Decision Med Decision/Clinical Course Patient is a 36 year old female with a history of insulin dependent diabetes and hypertension who presents to the ED complaining of mouth pain. Associated symptoms include trouble sleeping due to the pain. She denies fever or chills. The patient was seen yesterday at the dentist and diagnosed with an abscess after having her tooth pulled 3 days ago. She was started on Augmentin yesterday but reports that the pain is worsening. Here in the emergency department the patient is afebrile with stable vital signs and in no apparent distress. Examination reveals a dental extraction site with an adjacent tooth with significant dental caries. There is no obvious evidence of abscess. There is no evidence of Altaf angina. Her airway is widely patent. She is tolerating her secretions, phonating normally and swallowing normally. There is no swelling of her lips, face or neck. She reports that she is allergic to NSAIDs as well as hydrocodone. I prescribed a very limited supply of oxycodone and given her one tablet here in the emergency department. I have advised her to continue to take the Augmentin that was prescribed and follow-up with her dentist. Prior to discharge follow-up and return precautions were reviewed in detail with the patient who verbalized understanding and agreement with the plan. The patient was discharged in stable condition. Re-Evaluation/Progress : Time of Eval: 17:36 Re-Evaluation/Progress Note: Discussed plan for treatment and discharge. Patient understands and agrees to plan. All questions were addressed. Counseled Regarding: Diagnosis, Need for follow-up, When/why to return to ED Discharge & Departure Primary Impression: Mouth pain Additional Impressions: Mouth abscess Pain due to dental caries Pain, dental Disposition: Home Discharge Condition All VS Reviewed: Yes Condition: Stable Patient Instructions: Abscess (ED) Additional Instructions: Thank you for seeking care at the emergency room. Unfortunately, there was not an abscess that we could drain. You will be discharged with a prescription for Percocet. Continue to take the antibiotic, Augmentin as you were prescribed. You should follow-up with your dentist this week. You should return to the ED immediately if you develop increased swelling, difficulty breathing, difficulty swallowing or you think the infection is getting worse. Thank you for letting us partake in your care today. You have been prescribed a narcotic for pain relief. These drugs are usually combined with acetaminophen (Tylenol#3, Percocet, Darvocet, Anexsia, Vicodin) or aspirin (Empirin#3, Percodan, Synalogs-DC) for increased effect. Narcotics act on the central nervous system to reduce pain; they also impair mental alertness and physical abilities. We advise you not to drink alcohol, drive a car, or operate dangerous equipment when you are taking these drugs. You can lessen stomach irritation from your medicine by taking it with meals or a full glass of water. Common side effects of narcotics are: Nausea and vomiting, heartburn, constipation, dizziness, sleepiness, and mood changes. If you have bothersome side effects or symptoms of an allergic reaction (itching, hives, rash), stop taking your medicine and call your doctor or the emergency room right away. Please keep your narcotic medicine well out of the reach of children. Referrals: Kiran Haney MD (PCP) Scribe Attestation Portions of this note were transcribed by Rhiannon Santiago. I, Dr. Osborn personally performed the history, physical exam and medical decision-making; I reviewed and confirmed the accuracy of the information in the transcribed note. Signed by: Kiley Latham, 12/22/16 and 1851 copies to: Kiran Haney MD, Beck O MD Dec 22, 2016 17:05 Clarissa Santiago Dec 22, 2016 17:35
[2016-12-22] MEDS ORDERED: OXYC1TAB24 PO (17:47)
== END 2016-12-22 17:55 | disposition home or self-care (01) ==
LOC: SED 16:46
DX: K13.79 Other lesions of oral mucosa (principal); K12.2 Cellulitis and abscess of mouth; K08.89 Other specified disorders of teeth and supporting structures; K02.9 Dental caries, unspecified; I10 Essential (primary) hypertension; E11.9 Type 2 diabetes mellitus without complications; F17.200 Nicotine dependence, unspecified, uncomplicated; Z79.84 Long term (current) use of oral hypoglycemic drugs; Z79.899 Other long term (current) drug therapy; Z88.5 Allergy status to narcotic agent; Z88.6 Allergy status to analgesic agent; Z88.8 Allergy status to other drugs, medicaments and biological substances

== ENCOUNTER 2017-01-26 22:45 | Emergency (ER) | payer OTHER ==
[~2017-01-26] VITALS: Ht 165.1 cm; Wt 158.0 kg
--- NOTE | 2017-01-26 22:45 | ED.REPORT ---
HPI-Dyspnea / Wheezing Date of Service Jan 26, 2017 ED Provider: Dr. Lyn Pt is a 36 year old female with a hx of COPD, DM, HTN and asthma presenting to the ED via EMS complaining of SOB onset a few hours ago. She has had trouble breathing for the past few days due to the smoke in the air. Medics gave Solu- Medrol en route. Denies fever, chills, nausea or vomiting. Nursing Notes Stated Complaint: SHORTNESS OF BREATH Chief Complaint: SOB Nursing Notes Reviewed: Yes Allergies: Coded Allergies: methylprednisolone (Verified Allergy, Severe, Nausea,Vomiting, 11/21/16) hydrocodone bitartrate (Verified Allergy, Unknown, 11/21/16) TAKES PERCOCET AT HOME ibuprofen (Verified Allergy, Unknown, 11/21/16) ketorolac tromethamine (Verified Allergy, Unknown, 11/21/16) propoxyphene napsylate (Verified Allergy, Unknown, 08/14/16) Scheduled Budesonide/Formoterol 160-4.5 mcg Inh (Symbicort 160-4.5 mcg Inh) 120 Puff Inhaler 2 PUFF INHALATION BID Duloxetine (Duloxetine) 30 Mg Capsule.dr 30 MG PO BID Glimepiride (Glimepiride) 4 Mg Tablet 4 MG PO BID Lisinopril (Lisinopril) 10 Mg Tablet 10 MG PO QAM Metformin (Glucophage) 1,000 Mg Tablet 1,000 MG PO BID Mometasone/Formoterol (Dulera 200 Mcg/5 Mcg Inhaler) 13 Gm Hfa.aer.ad 2 PUFFS INH BID Norethindrone (Norethindrone) 0.35 Mg Tablet 0.35 MG PO DAILY Prednisone (Deltasone) 20 Mg Tablet 40 MG PO DAILY Prednisone (PredniSONE) 20 Mg Tablet 40 MG PO DAILY Prednisone (PredniSONE) 20 Mg Tablet 40 MG PO DAILY Prednisone (PredniSONE) 20 Mg Tablet 60 MG PO DAILY Prednisone (PredniSONE) 20 Mg Tablet 40 MG PO DAILY Scheduled PRN Albuterol HFA (Proair HFA) 8.5 Gm Hfa.aer.ad 2-4 PUFFS INHALATION Q6H PRN PRN For Shortness of Breath Albuterol Neb Soln (Albuterol Neb Soln) 2.5 Mg/3 Ml Vial.neb 2.5 MG INH TID PRN PRN For Shortness of Breath Insulin Glargine (Lantus U100 Insulin Vial) 100 Unit/Ml Vial 45 UNIT SUBQ HS PRN PRN blood sugar >140 Ipratropium [place] (Ipratropium [place] Inhalant Solution) 0.2 Mg/1 Ml Solution 1 VIAL INH TID PRN PRN For Shortness of Breath Promethazine HCl/Codeine (Prometh-Codein 6.25-10 mg/5 ml) 6.25 Mg-10 Mg/5 Ml (5 Ml) Syrup 5 ML PO Q6H PRN PRN For Cough oxyCODONE-Acetaminophen 5-325 mg (oxyCODONE-Acetaminophen 5-325 mg) 1 Each Tablet 1 TAB PO Q6H PRN PRN For Pain oxyCODONE-Acetaminophen 5-325 mg (oxyCODONE-Acetaminophen 5-325 mg) 1 Each Tablet 1 TAB PO Q4H PRN PRN For Pain General Time Seen by MD: 22:44 Chief Complaint Shortness of breath Hx Obtained From: Patient, EMS Arrived By: Ambulance Sudden in Onset?: Yes Onset Occurred: Just prior to arrival Symptom Duration: Since onset Severity: Current: No pain currently Severity: Maximum: No pain Recent Healthcare: No recent doctor visit, No recent hospitalization Similar Sx Previous: Yes Past Medical History Past Medical History Notes: Hospitalized in June 2016 for COPD exacerbation Patient has had numerous ED visits for abdominal pain and SOB Records indicate [address] scans over the years, all negative. Past Medical History Diverticulitis Chronic back pain Chronic narcotic use Morbid obesity Recurrent bronchitis Pancreatitis Polycystic ovarian syndrome Arthritis Reports: Asthma, COPD, Diabetes mellitus, Hypertension Reports: Obesity Past Surgical History Reports: Cholecystectomy Family History Mother from a blood clot in her leg Smoking History Current Every Day Smoker Social History Alcohol Use: "Social" Drug Use: THC Other Social History: Local resident Ambulatory Status Independent Review of Systems Constitutional: Denies: Chills, Fever Respiratory: Reports: Shortness of breath Complete sys rev & neg: except as marked. GI: Denies: Nausea, Vomiting Physical Exam Initial Vital Signs Vital Signs (First) Date Time Temp Pulse Resp B/P Pulse Ox O2 Delivery O2 Flow Rate FiO2 01/26/17 22:53 36.8 105 21 130/83 99 Nasal Cannula Initial VS: Reviewed Head / Eyes: Atraumatic, Normocephalic, PERRL ENT: Mucous membranes moist, Conjunctiva normal, No scleral icterus Abdomen / GI: Soft, Non-tender, No guarding, No rebound, No distention Extremities: Vascular intact, Neuro intact, No swelling, No tenderness Skin: Warm, Dry, No cyanosis Neurologic: Alert, Oriented, Nonfocal Psychiatric: Mood/affect normal, Behavior normal, Normal thought content General/Constitutional: Awake, Alert Appearance / Presentation: Positive: Obese Neck: Atraumatic, Supple, No meningismus Respiratory / Chest: Atraumatic Wheezing Interpretation & Diagnostics Lab Results Interpretation Result Diagram: 01/26/17 2314 01/26/17 2314 Test 01/26/17 23:14 01/27/17 01:11 01/27/17 01:13 White Blood Count 12.0th/mm3 (3.8-10.1) Red Blood Count 5.10mil/mm3 (3.90-5.20) Hemoglobin 13.8g/dL (12.0-15.6) Hematocrit 41.1% (35.0-46.0) Mean Corpuscular Volume 80.6fL (81-100) Mean Corpuscular Hemoglobin 27.1pg (27.0-35.0) Mean Corpuscular Hemoglobin Concent 33.6% (32.0-37.0) Red Cell Distribution Width 13.2% (12.3-15.4) Platelet Count 218bil/L (150-400) Neutrophils (%) (Auto) 43.5% (40-74) Lymphocytes (%) (Auto) 46.4% (14-46) Monocytes (%) (Auto) 7.3% (4-12) Eosinophils (%) (Auto) 2.0% (0-5) Basophils (%) (Auto) 0.5% (0-3) Sodium Level 133mEq/L (134-144) Potassium Level 3.9mEq/L (3.5-5.2) Chloride Level 96mEq/L (97-108) Carbon Dioxide Level 21mmol/L (18-29) Blood Urea Nitrogen 13mg/dL (6-20) Creatinine 0.83mg/dL (0.57-1.00) Estimat Glomerular Filtration Rate 99mL/min (>59) Glucose Level 358mg/dL (60-99) Calcium Level 9.4mg/dL (8.5-10.1) Total Bilirubin 0.3mg/dL (0.0-1.2) Aspartate Amino Transf (AST/SGOT) 15U/L (0-50) Alanine Aminotransferase (ALT/SGPT) 14U/L (0-32) Alkaline Phosphatase 82U/L (25-150) Pro-B-Type Natriuretic Peptide 118.3pg/mL (0-130) Total Protein 7.9g/dL (6.4-8.4) Albumin 4.2g/dL (3.4-5.0) Hold Titus Top Tube Received (Received) Hold Urine Received (Received) Troponin T 0.010ug/L (0.0-0.011) ECG Interpretation Time: 22:55 Interpreted by: ED physician Normal ECG Interpretation: Normal ECG w/ rate of... (86), Normal sinus rhythm Time: 01:32 Interpreted by: ED physician Normal ECG Interpretation: Normal rate (80), Normal sinus rhythm Repeat ECG: Repeat ECG unchanged X-Ray Chest Interpretation Chest Xray Interpretation: No acute disease. View: Portable, 1 view Interpretation / Wet Read by: Wet read ED physician Re-Eval/Medical Decision Med Decision/Clinical Course 36-year-old female with morbid obesity diabetes anxiety and asthma. Presents with wheezing today. No signs of infection, I note that at present air quality is very poor. She responded well to bronchodilators was given DuoNeb and then albuterol. Also got prednisone 40 mg orally 1. Also complaining of chest pain and anxiety. We gave her Pepcid, 1 Percocet and repeated troponin and ECG which were still reassuring. Pulmonary embolism was considered however given the wheezing I felt is more likely an asthma exacerbation, she has had numerous negative chest angiograms in the past. Re-Evaluation/Progress #1: Time of Eval: 00:47 Patient Status: Condition improved Re-Evaluation/Progress Note: Pt still complains of chest pain and anxiety. She does not currently take any anxiety medications. She reports that her breathing is improved. Minimal wheezes. In June and July she was hospitalized for COPD issues and similar chest pain. Re-Evaluation/Progress #2: Time of Eval: 01:51 Patient Status: Condition improved Re-Evaluation/Progress Note: Discussed repeat EKG results. Pt feeling better. Re-Evaluation/Progress #3: Time of Eval: 02:29 )( Re-Eval Resp / Chest: No wheezing Patient Status: Condition improved Re-Evaluation/Progress Note: Pt feeling much better. Discussed plan for discharge. Pt understands and agrees. Counseled Regarding: Diagnosis, Lab results, Need for follow-up, When/why to return to ED Discharge & Departure Impression: Primary Impression: Acute asthma exacerbation Asthma severity: mild intermittent Qualified Code: J45.21 - Mild intermittent asthma with (acute) exacerbation Additional Impression: Chest pain Chest pain type: chest pain on breathing Qualified Code: R07.1 - Chest pain on breathing Disposition: Home Discharge Condition All VS Reviewed: Yes Condition: Improved Additional Instructions: Your emergency visit today included interview, examination, labs, EKGs and a chest x ray. None of these showed signs of a heart attack. Your shortness of breath was likely caused by the smoke in the air. I would encourage you to stay inside as much as possible until the smoke is gone. Watch your blood sugars while on prednisone. Return to the ER if your shortness of breath worsens or if you develop any new concerning symptoms. Take prednisone 40mg a day for 4 more days. Continue previous home medications including nebulizer as needed. Follow up with your primary care provider in the next week if your symptoms persist. Referrals: Kiran Haney MD (PCP) Scribe Attestation Portions of this note were transcribed by Eyad Nguyen. I, Dr. Lyn personally performed the history, physical exam and medical decision-making; I reviewed and confirmed the accuracy of the information in the transcribed note. Signed by : Kiley Austin, 01/26/2017. copies to: Kiran Haney MD, Donald L MD Jan 26, 2017 22:45 EYAD NGUYEN Jan 26, 2017 22:56
[2017-01-26] MEDS ORDERED: Albuterol 2.5 mg/3 mL Inhalation Solution NEB ONE ×2 (22:46→22:50)
[2017-01-26] MEDS ORDERED: 0.9% Sodium Chloride 1,000 ML IV ONE (22:47)
[2017-01-26] MEDS ORDERED: predniSONE 20 mg Tablet PO ONE (22:50)
[2017-01-26] MEDS ORDERED: Albuterol-Ipratropium 3 mL Inhalation Solution NEB ONE (22:50)
[2017-01-26 22:53] VITALS: BP 130/83; PULSE 105; RESP 21; O2SAT 99
[2017-01-26 23:00] VITALS: PULSE 106; RESP 24; O2SAT 98
[2017-01-26 23:24] LABS: BASOPHILS % (AUTO) 0.5 % (0-3); MONOCYTES % (AUTO) 7.3 % (4-12); Mean Corpuscular Hemoglobin 27.1 pg (27.0-35.0); Mean Corpuscular Volume 80.6 fL (81-100); NEUTROPHILS % (AUTO) 43.5 % (40-74); Platelet Count 218 bil/L (150-400)
[2017-01-26 23:51] VITALS: BP 126/63; PULSE 91; RESP 24; O2SAT 98
[2017-01-27 00:15] LABS: TROPONIN T 0.01 ug/L (0.0-0.011)
[2017-01-27] MEDS ORDERED: oxyCODONE-Acetamin 5-325 mg Tablet PO ONE (00:50)
[2017-01-27] MEDS ORDERED: PRE20 PO (02:34)
[2017-01-27 02:57] VITALS: BP 150/90; PULSE 78; RESP 17; O2SAT 98
--- NOTE | 2017-01-27 07:59 | DRSVH ---
PROCEDURE: X-RAY CHEST ONE VIEW, PORTABLE ([id number]) INDICATIONS: dyspnea TECHNIQUE: One view of the chest was acquired. COMPARISON: [facility], CR, XR CHEST 2VW, 08/14/2016, 11:33. [facility], CR, XR CHEST 1VW (PORTABLE), 08/05/2016, 10:25. FINDINGS: Surgical changes and devices: None. Lungs and pleura: No pleural effusions or pneumothorax. Lungs are clear. Mediastinum: Mediastinal contours appear normal. Heart size is normal. Bones and chest wall: No suspicious bony lesions. Overlying soft tissues appear unremarkable. IMPRESSION: No acute disease. Source of shortness of breath is not found. Note: These findings are concordant with the preliminary interpretation. Dictated by: Man Marcelino M.D. on 01/27/2017 at 7:56 Approved by: Man Marcelino M.D. on 01/27/2017 at 7:56
== END 2017-01-27 00:36 | disposition home or self-care (01) ==
LOC: SED 22:53
DX: J45.21 Mild intermittent asthma with (acute) exacerbation (principal); R07.1 Chest pain on breathing; E11.9 Type 2 diabetes mellitus without complications; J44.9 Chronic obstructive pulmonary disease, unspecified; I10 Essential (primary) hypertension; F17.200 Nicotine dependence, unspecified, uncomplicated; Z79.84 Long term (current) use of oral hypoglycemic drugs; Z79.4 Long term (current) use of insulin; Z88.5 Allergy status to narcotic agent; Z88.6 Allergy status to analgesic agent; Z88.8 Allergy status to other drugs, medicaments and biological substances
CPT/HCPCS: 36415; 71010; 80053; 82948; 83880; 84484; 85025; 93005; 94640; 94664; 99285; J7030; J7620

== ENCOUNTER 2017-03-17 12:42 | Emergency (ER) | payer OTHER ==
[2017-03-17 13:00] VITALS: BP 124/88; PULSE 81; RESP 22; O2SAT 98
--- NOTE | 2017-03-17 13:15 | ED.REPORT ---
HPI-Abd Pain F Under 40 Date of Service Mar 17, 2017 ED Provider: Johnathon Freeman MD A 36 year old, obese female with history of chronic back pain, chronic narcotic use, pancreatitis, PCOS, COPD, and diabetes mellitus presents to the ED with suprapubic abdominal pain that began 3 days ago. The patient believes the pain is due to her kidneys but denies any history of pyelonephritis. She describes the pain as a "stabbing" pain that radiates around to her back and down her legs. Patient currently endorses nausea and diarrhea. She denies recent dysuria , hematuria, fever, chills, constipation or vomiting. Nursing Notes Stated Complaint: KIDNEY PAIN Nursing Notes Reviewed: Yes Allergies: Coded Allergies: methylprednisolone (Verified Allergy, Severe, Nausea,Vomiting, 03/17/17) hydrocodone bitartrate (Verified Allergy, Unknown, 03/17/17) TAKES PERCOCET AT HOME ibuprofen (Verified Allergy, Unknown, 03/17/17) ketorolac tromethamine (Verified Allergy, Unknown, 03/17/17) propoxyphene napsylate (Verified Allergy, Unknown, 03/17/17) Scheduled Budesonide/Formoterol 160-4.5 mcg Inh (Symbicort 160-4.5 mcg Inh) 120 Puff Inhaler 2 PUFF INHALATION BID Duloxetine (Duloxetine) 30 Mg Capsule.dr 30 MG PO BID Glimepiride (Glimepiride) 4 Mg Tablet 4 MG PO BID Lisinopril (Lisinopril) 10 Mg Tablet 10 MG PO QAM Metformin (Glucophage) 1,000 Mg Tablet 1,000 MG PO BID Mometasone/Formoterol (Dulera 200 Mcg/5 Mcg Inhaler) 13 Gm Hfa.aer.ad 2 PUFFS INH BID Norethindrone (Norethindrone) 0.35 Mg Tablet 0.35 MG PO DAILY Prednisone (Deltasone) 20 Mg Tablet 40 MG PO DAILY Prednisone (PredniSONE) 20 Mg Tablet 40 MG PO DAILY Prednisone (PredniSONE) 20 Mg Tablet 40 MG PO DAILY Prednisone (PredniSONE) 20 Mg Tablet 60 MG PO DAILY Prednisone (PredniSONE) 20 Mg Tablet 40 MG PO DAILY Scheduled PRN Albuterol HFA (Proair HFA) 8.5 Gm Hfa.aer.ad 2-4 PUFFS INHALATION Q6H PRN PRN For Shortness of Breath Albuterol Neb Soln (Albuterol Neb Soln) 2.5 Mg/3 Ml Vial.neb 2.5 MG INH TID PRN PRN For Shortness of Breath Insulin Glargine (Lantus U100 Insulin Vial) 100 Unit/Ml Vial 45 UNIT SUBQ HS PRN PRN blood sugar >140 Ipratropium [place] (Ipratropium [place] Inhalant Solution) 0.2 Mg/1 Ml Solution 1 VIAL INH TID PRN PRN For Shortness of Breath Promethazine HCl/Codeine (Prometh-Codein 6.25-10 mg/5 ml) 6.25 Mg-10 Mg/5 Ml (5 Ml) Syrup 5 ML PO Q6H PRN PRN For Cough oxyCODONE-Acetaminophen 5-325 mg (oxyCODONE-Acetaminophen 5-325 mg) 1 Each Tablet 1 TAB PO Q6H PRN PRN For Pain oxyCODONE-Acetaminophen 5-325 mg (oxyCODONE-Acetaminophen 5-325 mg) 1 Each Tablet 1 TAB PO Q4H PRN PRN For Pain General Time Seen by MD: 13:10 Chief Complaint Abdominal pain Hx Obtained From: Patient Arrived By: Walk-in Sudden in Onset?: No Onset Occurred: 3 days ago Symptom Duration: Since onset Progression since Onset: Constant Location: : Suprapubic Quality: Stabbing Radiation: : Flank bilateral Severity: Current: Moderate Severity: Maximum: Moderate Associated with: Reports: Diarrhea, Nausea, Denies: Chills, Constipation, Dysuria, Fever, Hematuria, Vomiting Pertinent Negative: Pt denies other symptoms Recent Healthcare: No recent doctor visit, No recent hospitalization Past Medical History Past Medical History Notes: Hospitalized in June 2016 for COPD exacerbation Patient has had numerous ED visits for abdominal pain and SOB Records indicate [address] scans over the years, all negative. Past Medical History Diverticulitis Chronic back pain Chronic narcotic use Morbid obesity Recurrent bronchitis Pancreatitis Polycystic ovarian syndrome Arthritis Reports: Asthma, COPD, Diabetes mellitus, Hypertension Reports: Obesity Past Surgical History Reports: Cholecystectomy Family History Mother from a blood clot in her leg Smoking History Current Every Day Smoker Social History Alcohol Use: "Social" Drug Use: THC Other Social History: Good social support, Local resident Ambulatory Status Independent Review of Systems Constitutional: Denies: Chills, Fever GI: Reports: Abdominal pain, Denies: Nausea, Vomiting Female: Reports: Flank pain, Denies: Dysuria, Hematuria Musculoskeletal: Reports: Back pain Complete sys rev & neg: except as marked. Physical Exam Initial Vital Signs Vital Signs (First) Date Time Temp Pulse Resp B/P Pulse Ox O2 Delivery O2 Flow Rate FiO2 03/17/17 13:00 37.2 81 22 124/88 98 Room Air Initial VS: Reviewed Head / Eyes: Atraumatic, Normocephalic, PERRL Neck: Supple, Non-tender, Full range of motion Extremities: Vascular intact, Neuro intact, No swelling, No tenderness Skin: Warm, Dry, No cyanosis Neurologic: Alert, Oriented, Nonfocal Psychiatric: Mood/affect normal, Behavior normal, Normal thought content General/Constitutional: Awake, Alert, No acute distress Respiratory / Chest: Atraumatic, Breath sounds NL, Breath sounds = bilat, No respiratory distress Cardiovascular: Heart rate NL, Regular rhythm, Heart sounds NL, No murmurs Abdomen: Atraumatic, Soft, No guarding, No rebound Tenderness/Guarding/Rebound: Positive: Tender suprapubic (Mild) Back: Atraumatic, No CVA tenderness Straight Leg Raise: Positive: Strt leg raise + R 40 deg BACK: Right lower back tenderness to palpation Interpretation & Diagnostics Lab Results Interpretation Result Diagram: 03/17/17 1335 03/17/17 1335 Test 03/17/17 13:35 03/17/17 13:58 White Blood Count 8.0th/mm3 (3.8-10.1) Red Blood Count 5.22mil/mm3 (3.90-5.20) Hemoglobin 13.9g/dL (12.0-15.6) Hematocrit 42.6% (35.0-46.0) Mean Corpuscular Volume 81.6fL (81-100) Mean Corpuscular Hemoglobin 26.6pg (27.0-35.0) Mean Corpuscular Hemoglobin Concent 32.6% (32.0-37.0) Red Cell Distribution Width 13.5% (12.3-15.4) Platelet Count 177bil/L (150-400) Neutrophils (%) (Auto) 52.0% (40-74) Lymphocytes (%) (Auto) 35.7% (14-46) Monocytes (%) (Auto) 9.5% (4-12) Eosinophils (%) (Auto) 2.3% (0-5) Basophils (%) (Auto) 0.4% (0-3) Sodium Level 139mEq/L (134-144) Potassium Level 3.7mEq/L (3.5-5.2) Chloride Level 102mEq/L (97-108) Carbon Dioxide Level 24mmol/L (18-29) Blood Urea Nitrogen 10mg/dL (6-20) Creatinine 0.73mg/dL (0.57-1.00) Estimat Glomerular Filtration Rate 115mL/min (>59) Glucose Level 128mg/dL (60-99) Calcium Level 9.2mg/dL (8.5-10.1) Magnesium Level 1.9mg/dL (1.6-2.6) Total Bilirubin 0.6mg/dL (0.0-1.2) Aspartate Amino Transf (AST/SGOT) 27U/L (0-50) Alanine Aminotransferase (ALT/SGPT) 22U/L (0-32) Alkaline Phosphatase 79U/L (25-150) Total Protein 7.6g/dL (6.4-8.4) Albumin 4.0g/dL (3.4-5.0) Lipase 37U/L (13-60) Hold Titus Top Tube Received (Received) Hold Urine Received (Received) Re-Eval/Medical Decision Med Decision/Clinical Course Med Decision/Clinical Course: 36-year-old female presenting with right lower back pain radiating down the back of her leg since earlier today. Straight leg raises positive. Diffuse right lower back tenderness. No midline tenderness. No red flag symptoms. Her urine is negative. Her labs are unremarkable. Likely sciatica. Patient's pain improved with Tylenol. Discharged home with return precautions. Follow-up primary doctor. Re-Evaluation/Progress : Time of Eval: 14:27 Patient Status: Condition improved, Pain improved Re-Evaluation/Progress Note: Patient condition is re-evaluated. She is informed of her current results and likely diagnosis. All questions about the intended treatment plan are addressed. She understands and agrees with the current plan. Counseled Regarding: Diagnosis, Lab results, Need for follow-up, When/why to return to ED Discharge & Departure Primary Impression: Sciatica Laterality: right Qualified Code: M54.31 - Sciatica, right side Disposition: Home Discharge Condition All VS Reviewed: Yes Condition: Improved Patient Instructions: Sciatica (ED) Additional Instructions: Thank you for trusting us with your care this morning. Your emergency department evaluation today including examination and lab work are reassuring that there is no emergent cause for concern at this time and I believe your symptoms are due to sciatica. I recommend that you schedule a follow up appointment with your primary care physician (or see referral) in the next 2-3 days for a recheck. Take ibuprofen or Tylenol as directed for pain. Please return to the emergency department for any new or worsening symptoms including any numbness/tingling or weakness in the lower extremities, incontinence to urine or stool, worsening back pain or any other symptoms of concern. Referrals: Kiran Haney MD (PCP) Scribe Attestation Portions of this note were transcribed by Ezekiel Headley. I, Dr. Freeman personally performed the history, physical exam and medical decision-making; I reviewed and confirmed the accuracy of the information in the transcribed note. Signed by Kiley Delatorre, 03/17/17. copies to: Kiran Haney MD, Ben M MD Mar 17, 2017 13:15 EZEKIEL HEADLEY Mar 17, 2017 14:11
[2017-03-17 13:48] LABS: BASOPHILS % (AUTO) 0.4 % (0-3); EOSINOPHILS % (AUTO) 2.3 % (0-5); MONOCYTES % (AUTO) 9.5 % (4-12); Mean Corpuscular Hemoglobin 26.6 pg (27.0-35.0); Mean Corpuscular Volume 81.6 fL (81-100); Platelet Count 177 bil/L (150-400)
[2017-03-17 14:06] LABS: Magnesium 1.9 mg/dL (1.6-2.6)
[2017-03-17 14:41] VITALS: BP 153/93; PULSE 103; RESP 24
== END 2017-03-17 14:30 | disposition home or self-care (01) ==
LOC: EDBD 12:42 → SED 12:42
DX: M54.31 Sciatica, right side (principal); I10 Essential (primary) hypertension; E11.9 Type 2 diabetes mellitus without complications; F17.200 Nicotine dependence, unspecified, uncomplicated; Z79.84 Long term (current) use of oral hypoglycemic drugs; Z88.5 Allergy status to narcotic agent; Z88.6 Allergy status to analgesic agent; Z88.8 Allergy status to other drugs, medicaments and biological substances; Z79.4 Long term (current) use of insulin